=== PATIENT | female | born 1955 | race Caucasian/White ===

== ENCOUNTER 2018-12-18 16:38 | Emergency (ER) | payer OTHER ==
[~2018-12-18] VITALS: Ht 160 cm; Wt 63.5 kg
[~2018-12-18 16:38] MED LIST: AMITRIPTYLINE H10 MG PO; FIORINAL 50-321 EACH PO; LEVOTHYROXINE25 MCG PO; LYRICA50 MG PO; MIRTAZAPINE7.5 MG PO; PROZAC10 MG PO; REQUIP1 MG PO; WELLBUTRIN XL150 MG PO
== END 2018-12-18 16:53 | disposition home or self-care (01) ==
LOC: ED 16:38
DX: R22.0 Localized swelling, mass and lump, head (principal)

== ENCOUNTER 2019-02-02 19:50 | Emergency (ER) | payer OTHER ==
[~2019-02-02] VITALS: Ht 160 cm; Wt 63.5 kg
[~2019-02-02 19:50] MED LIST changes: +SEROQUEL100 MG PO; +ULTRAM50 MG PO
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
[2019-02-02] MEDS ORDERED: AMITRIPTYLINE H10 MG PO (20:22)
[2019-02-02] MEDS ORDERED: PROZAC10 MG PO (20:22)
[2019-02-02] MEDS ORDERED: SYNTHROID25 MCG PO (20:22)
[2019-02-02] MEDS ORDERED: SEROQUEL100 MG PO (20:22)
[2019-02-02] MEDS ORDERED: WELLBUTRIN XL150 MG PO (20:22)
[2019-02-02] MEDS ORDERED: ULTRAM50 MG PO (20:22)
[2019-02-02] MEDS ORDERED: REQUIP0.5 MG PO (20:22)
== END 2019-02-02 20:26 | disposition home or self-care (01) ==
LOC: ED 19:50
DX: Z76.0 Encounter for issue of repeat prescription (principal); F31.9 Bipolar disorder, unspecified; F43.10 Post-traumatic stress disorder, unspecified; E03.9 Hypothyroidism, unspecified; F17.200 Nicotine dependence, unspecified, uncomplicated; Z90.89 Acquired absence of other organs; Z88.5 Allergy status to narcotic agent; Z79.899 Other long term (current) drug therapy
CPT/HCPCS: 99281

== ENCOUNTER 2019-02-13 01:17 | Emergency (ER) | payer OTHER ==
[~2019-02-13] VITALS: Ht 160 cm; Wt 63.5 kg
--- OUTSIDE RECORDS SUMMARY | ~2019-02-13 | XMS | Clinical Summary ---
Demographics + + + | Address | [address] | | | [place] [address] | + + + | Home Phone | | + + + | Preferred Language | Unknown | + + + | Marital Status | Unknown | + + + | Episcopal Affiliation | Unknown | + + + | Race | Unknown | + + + | Ethnic Group | Unknown | + + + Author + + + | Author | [facility] | | | and [facility] | + + + | Organization | [facility] | | | and [facility] | + + + | Address | Unknown | + + + | Phone | Unavailable | + + + Care Team Providers + +------+ + | Care Sales Planning Analyst Name | Role | Phone | + +------+ + PP | Unavailable | + +------+ + Allergies Not on File Current Medications Not on file Active Problems Not on file Social History + +-------+ +--------+------+ | Tobacco [...] on file | | + + + Plan of Treatment + [...] | | | | | (#1) | 8 | | | + + + + + Results Not on filefrom Last 3 Months"
--- OUTSIDE RECORDS SUMMARY | ~2019-02-13 | XMS | Clinical Summary ---
Demographics + + + | Address | [address] | | | [place] [address] | + + + | Home Phone | | + + + | Preferred Language | Unknown | + + + | Marital Status | Unknown | + + + | Hoahaoism Affiliation | Unknown | + + + | Race | Unknown | + + + | Ethnic Group | Unknown | + + + Author + + + | Author | [facility] | | | and [facility] | + + + | Organization | [facility] | | | and [facility] | + + + | Address | Unknown | + + + | Phone | Unavailable | + + + Care Team Providers + +------+ + | Care Business Services Specialist Sales Name | Role | Phone | + [...]
[~2019-02-13 01:17] MED LIST changes: +REQUIP0.5 MG PO; +SYNTHROID25 MCG PO
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
[2019-02-13] MEDS ORDERED: KEFLEX500 MG PO (03:15)
== END 2019-02-13 03:40 | disposition home or self-care (01) ==
LOC: ED 01:17
DX: N39.0 Urinary tract infection, site not specified (principal); F31.9 Bipolar disorder, unspecified; F41.3 Other mixed anxiety disorders; E03.9 Hypothyroidism, unspecified; F17.200 Nicotine dependence, unspecified, uncomplicated; Z88.5 Allergy status to narcotic agent; Z79.899 Other long term (current) drug therapy
CPT/HCPCS: 80053; 80176; 81001; 84443; 85025; 99283; G0480

== ENCOUNTER 2019-09-19 02:21 | Emergency (ER) | payer OTHER ==
[~2019-09-19] VITALS: Ht 160 cm; Wt 70.3 kg
--- OUTSIDE RECORDS SUMMARY | ~2019-09-19 | XMS | Clinical Summary ---
Demographics + + + | Address | [address] [place] [address] | | | [place] [address] | + + + | Home Phone | | + + + | Preferred Language | Unknown | + + + | Marital Status | Unknown | + + + | Advent Affiliation | Unknown | + + + | Race | Unknown | + + + | Ethnic Group | Unknown | + + + Author + + + | Author | [facility] | | | and [place] | + + + | Organization | [facility] | | | and [place] [...] Team Providers + +------+ + | Care Medtronics Technician Name | Role | Phone | + [...] | [employer] | MODA | [id number] | 02/24/20 | [phone] | | Medica | | MEDICAID HMO [...] | Self | [birth year] | [address] | | | al/Fam | | 1955 | [phone] | [place] | | | brett | | | 1 (Home) | [address] | + +--------+ +--------+ + + Advance Directives Patient has advance care planning documents on file. For more information, please contact:[facility] [place] [address]
--- OUTSIDE RECORDS SUMMARY | ~2019-09-19 | XMS | Clinical Summary ---
Demographics + + + | Address | [address] [place] [address] | | | [place] [address] | + + + | Home Phone | | + + + | Preferred Language | Unknown | + + + | Marital Status | Unknown | + + + | Evangelical Affiliation | Unknown | + + + | Race | Unknown | + + + | Ethnic Group | Unknown | + + + Author + + + | Author | [facility] | | | and [place] | + + + | Organization | [facility] | | | and [place] [...] Team Providers + +------+ + | Care Wireless Telegrapher Name | Role | Phone | + [...] | [employer] | MODA | [id number] | 02/24/20 | [phone] | | Medica | | MEDICAID HMO [...] Self | [birth year] | | [address] | | | al/Fam | | 1955 | [phone] | [place] | | | [place] | | | 1 (Home) | [address] | + +--------+ +--------+ + + Advance Directives Patient has advance care planning documents on file. For more information, please contact:[facility] [place] [address]
[~2019-09-19 02:21] MED LIST changes: +KEFLEX500 MG PO
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
== END 2019-09-19 04:46 | disposition home or self-care (01) ==
LOC: ED 02:21
DX: F20.9 Schizophrenia, unspecified (principal); E87.1 Hypo-osmolality and hyponatremia; F31.9 Bipolar disorder, unspecified; E03.9 Hypothyroidism, unspecified; Z88.5 Allergy status to narcotic agent; Z79.899 Other long term (current) drug therapy
CPT/HCPCS: 80053; 80176; 81001; 84443; 85025; 99283; G0480

== ENCOUNTER 2019-09-19 08:00 | Emergency (ER) | payer OTHER ==
[~2019-09-19] VITALS: Ht 160 cm; Wt 70.3 kg
--- OUTSIDE RECORDS SUMMARY | ~2019-09-19 | XMS | Clinical Summary ---
Demographics + + + | Address | [address] [place] [address] | | | [place] [address] | + + + | Home Phone | | + + + | Preferred Language | Unknown | + + + | Marital Status | Unknown | + + + | Anabaptism Affiliation | Unknown | + + + | Race | Unknown | + + + | Ethnic Group | Unknown | + + + Author + + + | Author | [facility] | | | and [place] | + + + | Organization | [facility] | | | and [place] [...] Team Providers + +------+ + | Care Com Writer Name | Role | Phone | + [...] | [employer] | MODA | [id number] | 02/24/20 | [phone] | | Medica | | MEDICAID HMO [...] | Self | [birth year] | [address] | | | al/Fam | | 1955 | [phone] | [place] | | | brett | | | 1 (Home) | [address] | + +--------+ +--------+ + + Advance Directives Patient has advance care planning documents on file. For more information, please contact:[facility] [place] [address]
--- OUTSIDE RECORDS SUMMARY | ~2019-09-19 | XMS | Clinical Summary ---
Demographics + + + | Address | [address] [place] [address] | | | [place] [address] | + + + | Home Phone | | + + + | Preferred Language | Unknown | + + + | Marital Status | Unknown | + + + | Taoist Affiliation | Unknown | + + + | Race | Unknown | + + + | Ethnic Group | Unknown | + + + Author + + + | Author | [facility] | | | and [place] | + + + | Organization | [facility] | | | and [place] [...] Team Providers + +------+ + | Care Forging Operator Name | Role | Phone | [...] | [employer] | MODA | [id number] | 02/24/20 | [phone] | | Medica | | MEDICAID HMO [...] | | al/Fam | | 1955 | [phone] | [place] | | | [place] | | | 1 (Home) | [address] | + +--------+ +--------+ + + Advance Directives Patient has advance care planning documents on file. For more information, please contact:[facility] [place] [address]
--- OUTSIDE RECORDS SUMMARY | 2019-09-19 08:02 | XMS ---
PreManage Notification: ZANDRA LOAIZA Security Starch Treating Assistant Events No recent Security Events currently on file CRITERIA MET - [facility] - Has Care Guidelines - [facility] - 2 Visits in 30 Days CARE PROVIDERS CHRISTINA FLORES Internal Medicine 02/02/2019-Current PHONE: Unknown Nancy has no Care Guidelines for this patient. Care History Medical/Surgical 02/13/2019 [facility] - PATIENT HAS NOT CONTACTED PCP OFFICE. DR SANDRA SANDY HAS TRIED TO CONTACT PATIENT AND LEFT A VOICEMAIL. - PATIENT HAS NOT SEEN PCP SINCE 08/01/2018 AND NEEDS FURTHER FOLLOW UP WITH PCP. 02/02/2019 [facility] - CHW RECEIVED ED CASE MANAGEMENT CONSULT- WITH PATIENT REQUEST TO GO TO [facility]. MS ACCESS DATABASE DEVELOPER WAS INVOLVED WITH PATIENT ALONG WITH [employer]. CHW CONTACTED CHWS OF [facility] AND ADVISED OF REFERRAL. - Patient is currently established with [facility]. If patient is seen in the ED during business hours. Please contact CHWs at [facility]. Care Recommendation: This patient has had 5 [...] care. E.D. VISIT COUNT (12 MO.) 1 [facility] 6 PATIENCE Arreguin TOTAL 7 NOTE: Visits indicate total known visits. 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 - Allergy status to narcotic agent status - Bipolar disorder, unspecified - Nicotine dependence, unspecified, uncomplicated - Other mixed anxiety disorders - Cervicalgia - Urinary tract infection, site not specified 02/02/2019 19:51 PATIENCE [facility] TYPE: Emergency COMPLAINT: - MEDICATION REFILL DIAGNOSES: - Acquired absence of other organs - Allergy status to narcotic agent status - Hypothyroidism, unspecified - Other watermelon harvesting supervisor (current) drug therapy - Post-traumatic stress disorder, [...] part of neck, initial encounter - Other mcc (current) drug therapy 12/18/2018 16:38 [facility] [place] TYPE: Emergency COMPLAINT: - SKIN [id number] DIAGNOSES: - Localized swelling, mass and lump, head INPATIENT VISIT TRACKING (12 MO.) No inpatient visits to display in this time frame [id number]
== END 2019-09-19 08:46 | disposition home or self-care (01) ==
LOC: ED 08:00
DX: R52 Pain, unspecified (principal); E03.9 Hypothyroidism, unspecified; F31.9 Bipolar disorder, unspecified; F17.200 Nicotine dependence, unspecified, uncomplicated; Z88.5 Allergy status to narcotic agent; Z79.899 Other long term (current) drug therapy
CPT/HCPCS: 99283

== ENCOUNTER 2019-09-21 11:24 | Inpatient (IN) | payer OTHER ==
[~2019-09-21] VITALS: Ht 160 cm; Wt 64.9 kg
--- OUTSIDE RECORDS SUMMARY | ~2019-09-21 | XMS | Clinical Summary ---
Demographics + + + | Address | [address] [place] [address] | | | [place] [address] | + + + | Home Phone | | + + + | Preferred Language | Unknown | + + + | Marital Status | Unknown | + + + | Sikh Affiliation | Unknown | + + + | Race | Unknown | + + + | Ethnic Group | Unknown | + + + Author + + + | Author | [facility] | | | and [place] | + + + | Organization | [facility] | | | and [place] | + + + | Address | Unknown | + + + | Phone | Unavailable | + + + Support + + +---------+ + | Name | Relationship | Address | Phone | + + +---------+ + | None,To List | ECON | Unknown | | + + +---------+ + Care Team Providers + +------+ + | Care Drawer Hardware Worker Name | Role | Phone | + +------+ + | Unknown, Doctor | PCP | | + +------+ + Allergies No Known Allergies Medications No known medications Active Problems Not on file Social History + + + +--------+------+ | [...] + +---------+ + | Alcohol Use | Drinks/We | oz/Week | Comments | | | ek | | | + + +---------+ + | Yes | | | | + + +---------+ + + + + | Sex Assigned at | Date Recorded | | | | + + + | Not on file | | + + + + + + + | Job Start Date | Occupation | Industry | + + + + | Not on file | Not on file | Not on file | + + + + + + + + | Travel History | Travel Start | Travel End | + + + + + + | No recent travel history available. | + + Last Filed Vital Signs + + + + | Vital Sign | Reading | Time Taken | + + + + | Blood Pressure | 117/58 | 02/24/2019 1500 PDT | + + + + | Pulse | 109 | 02/24/2019 1500 PDT | + + + + | Temperature | 35.7 C (96.2 F) | 02/23/2019 2256 PDT | + + + + | Respiratory Rate | 18 | 02/24/2019 1500 PDT | + + + + | Oxygen Saturation | 95% | 02/24/2019 1500 PDT | + + + + | Inhaled Oxygen | - | - | | Concentration | | | + + + + | Weight | 63.5 kg (140 lb) | 02/23/20191899 PDT | + + + + | Height | 161.3 cm (5' 3.5") | 02/23/20191899 PDT | + + + + | Body Mass Index | 24.41 | 02/23/2019 1900 PDT | + + + + Plan of Treatment + + + + + | Health Maintenance | Due Date | Last Done | Comments | + + + + + | Vaccine: | | | | | Dtap/Tdap/Td (1 - | 6 | | | | Tdap) | | | | + + + + + | Cervical Cancer | | | | | Screening (Pap) | 7 | | | + + + + + | Vaccine: Zoster (1 | | | | | of 2) | 7 | | | + + + + + | Breast Cancer | | | | | Screening | 2 | | | + + + + + | Vaccine: Influenza | | | | | (#1) | 9 | | | + + + + + Results Not on filefrom Last 3 Months Insurance + +--------+ +--------+ +---------+--------+ | Payer | Benefi | Subscriber | Effect | Phone | Address | Type | | | t Plan | ID | pamela | | | | | | / | | Dates | | | | | | Group | | | | | | + +--------+ +--------+ +---------+--------+ | [employer] | [employer] | [id number] | 02/24/20 | [phone] | | Medica | | MEDICAID HMO | HEALTH | | 19-Pre | 1 | | id | | | MDCD | | sent | | | | | | HMO OR | | | | | | + +--------+ +--------+ +---------+--------+ + +--------+ +--------+ + + | Guarantor Name | Accoun | Relation to | Date | Phone | Billing Address | | | t Type | Patient | of | | | | | | | | | | + +--------+ +--------+ + + | Shirley Macedo | Person | Self | [birth year] | [address] | | | al/Fam | | 1955 | [phone] | [place] | | | brett | | | [address] (Home) | [phone] | + +--------+ +--------+ + + Advance Directives Patient has advance care planning documents on file. For more information, please contact:[facility] [place] [address]
--- OUTSIDE RECORDS SUMMARY | ~2019-09-21 | XMS | Clinical Summary ---
Demographics + + + | Address | [address] [place] [address] | | | [place] [address] | + + + | Home Phone | | + + + | Preferred Language | Unknown | + + + | Marital Status | Unknown | + + + | Jainism Affiliation | Unknown | + + + | Race | Unknown | + + + | Ethnic Group | Unknown | + + + Author + + + | Author | [facility] | | | and [place] | + + + | Organization | [facility] | | | and [place] [...] Team Providers + +------+ + | Care Soaping Machine Back Tender Name | Role | Phone | + [...] | [employer] | [employer] | [id number] | 02/24/20 | [phone] | | Medica | | MEDICAID HMO [...] | Self | [birth year] [address] | | | al/Fam | | 1955 | [phone] | [place] | | | [place] | | | [address] (Home) | [address] | + +--------+ +--------+ + + Advance Directives Patient has advance care planning documents on file. For more information, please contact:[facility] [place] [address]
--- OUTSIDE RECORDS SUMMARY | ~2019-09-21 | XMS | Clinical Summary ---
Demographics + + + | Address | [address] [place] [address] | | | [place] [address] | + + + | Home Phone | | + + + | Preferred Language | Unknown | + + + | Marital Status | Unknown | + + + | Caodaism Affiliation | Unknown | + + + | Race | Unknown | + + + | Ethnic Group | Unknown | + + + Author + + + | Author | [facility] | | | and [place] | + + + | Organization | [facility] | | | and [place] | [...] Team Providers + +------+ + | Care Facility Maintenance Technician Name | Role | Phone | [...] | [employer] | [employer] | [id number] | 02/24/20 | [phone] | | [employer]ica | | MEDICAID HMO [...] | Self | [birth year] | | [address] | | | al/Fam | | 1955 | [phone] | [place] | | | [place] | | | [address] (Home) | [address] | + +--------+ +--------+ + + Advance Directives Patient has advance care planning documents on file. For more information, please contact:[facility] [place] [place] [address]
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
[2019-09-21] MEDS ORDERED: WELLBUTRIN SR100 MG PO (11:48)
[2019-09-21] MEDS ORDERED: FLUOXETINE HCL20 MG PO (11:48)
[2019-09-21] MEDS ORDERED: TIROSINT50 MCG PO (11:49)
[2019-09-21] MEDS ORDERED: DOK100 MG PO (11:49)
[2019-09-21] MEDS ORDERED: ARNUITY ELLIPT50 MCG NAS (11:50)
[2019-09-21] MEDS ORDERED: FLONASE ALLERG9.9 ML NAS (11:51)
--- NOTE | 2019-09-21 17:30 | NUR ---
PT ARRIVED FROM ED VIA STRETCHER. PT ALERT TO SELF AND PLACE. PT ANXIOUS. SITTER IN ROOM WITH PATIENT. BED ALARM IN PLACE.
--- NOTE | 2019-09-21 17:45 | NUR ---
X-RAY TECH IN ROOM WITH PATIENT FOR CHEST X-RAY.
--- NOTE | 2019-09-21 18:17 | NUR ---
PT RESTING IN BED WITH SITTER IN ROOM. BED ALARM IN PLACE.
--- NOTE | 2019-09-21 19:17 | NUR ---
REBEKA MOTT AND THIS ROUTER TENDER HELPED PATIENT USE THE BEDSIDE COMMODE. PATIENT IS BACK BACK IN BED.
--- NOTE | 2019-09-21 19:30 | NUR ---
PATIENT IS IN BED AWAKE AND RESTLESS.
--- NOTE | 2019-09-21 19:54 | NUR ---
PT ALERT BUT CONFUSED. DEMANDING WATER AND A COKE. STATES NEEDS TO VOID, HAS BEEN UP X3 AND VOIDED SCANT AMT URINE. BLADDER SCANNED FOR GREATER THAN 800ML. DR LOMAX NOTIFIED. WILL CONT TO WATCH. PT ALSO C/O BEING HUNGRY. WILL OBTAIN SANDWICH. IS UNSTABLE ON FEET WHEN UP AND DIFFICULT TO DIRECT. IV SL FOR NOW PER DR LOMAX.
--- NOTE | 2019-09-21 19:57 | NUR ---
NURSE AND THIS LITIGATION LEGAL SECRETARY HELPED PATIENT USED THE BEDSIDE COMMODE. PATIENT DID NOT URINATE. PATIENT IS BACK IN BED.
--- NOTE | 2019-09-21 20:07 | NUR ---
PATIENT IS EATING HER SNACK PACK.
--- NOTE | 2019-09-21 21:17 | NUR ---
PATIENT USED THE BEDSIDE COMMODE AND VOIDED. PATIENT IS BACK IN BED.
--- NOTE | 2019-09-21 21:21 | NUR ---
WARM BLANKET PROVIDED PER PATIENT'S REQUEST.
--- NOTE | 2019-09-21 21:30 | NUR ---
DR LOMAX AWARE OF LABS. D5W STARTED. PT QUIETER NOW AND READY FOR SLEEP.
--- NOTE | 2019-09-21 21:42 | NUR ---
PATIENT IS LAYING ON HER RIGHT SIDE CALM, RESTING, EYES CLOSED WITH RR 17 MANUALLY COUNTED IN WHOLE MINUTE.
--- NOTE | 2019-09-21 22:58 | NUR ---
PATIENT IS RESTING LAYING ON HER LEFT SIDE EYES CLOSE RR 14/MINUTE TAKEN VISUALLY.
--- NOTE | 2019-09-22 00:04 | NUR ---
IS SLEEPING, IV D5 CONT TO INFUSE.
--- NOTE | 2019-09-22 01:25 | NUR ---
SLEEPING SOUNDLY. DEXTROSE INFUSION COMPLETED AT 0105.
--- NOTE | 2019-09-22 02:27 | NUR ---
LAB IN TO DRAW BLOOD. SHOOK HEAD "NO" WHEN ASKED IF NEEDED TO URINATE. TURNS SELF IN BED.
--- NOTE | 2019-09-22 03:26 | NUR ---
DR LOMAX NOTIFED OF LABS, ORDER RECIEVED TO GIVEN PT 40MEQ POTASSIUM PO AND TO GIVE 1L OF D5 AT 25OML/HR.
--- NOTE | 2019-09-22 03:51 | NUR ---
PT AWAKENED FOR MEDS. TOOK MEDS WITH MOD ENCOURAGMENT, NO DIFFICULTY SWALLOWING. ENCOURAGED TO VOID, PT DEMANDED TO GO TO BATHROOM. ASSISTED TO BR WHERE PT VOIDED AND PASSED GAS. PT VERY IMPULSIVE IN MOVEMENT AND THEN UNSTEADY. ASKING FOR WATER, GIVEN WATER THEN RETCHED BUT DID NOT THROW UP PILLS.
--- NOTE | 2019-09-22 04:00 | NUR ---
ASSISTED PRIMARY RN START IV.
--- NOTE | 2019-09-22 05:15 | NUR ---
PT VERY AGITATED, WANTING TO WALK. WILL NOT KEEP MONITOR ON. AMB IN WHITE, WILL START TO WALK RAPIDLY THEN BECOMES UNSTEADY. WILL ALSO STRIKE OUT. DR LOMAX CALLED AND ORDER FOR 0.5MG ATIVAN IV NOW AND MAY REPEAT IF PT DOES NOT CALM IN 15-20MIN. PT NOW BACK TO BED WITH SITTER IN ROOM.
--- NOTE | 2019-09-22 06:15 | NUR ---
GIVEN 0.5MG LORAZAPAM AT 0525, IS NOW SLEEPING. PT HAD TAKEN MONITOR LEADS OFF WHILE IN AGITATED STATE. WILL CONT TO LEAVE OFF FOR NOW.
--- NOTE | 2019-09-22 07:30 | NUR ---
report recieved. PATIENT IS ASLEEP IN BED. IVF PATENT. WILL DO ASSESSMENT WHEN WAKES. MONITOR IS OFF AT THIS TIME. RESP EVEN AND NONLABORED.
--- NOTE | 2019-09-22 08:00 | NUR ---
AWAKENED FOR LABS. IS DROWSY. ASSESSMENT DONE. LUBRICATOR GRANULATOR IN ROOM.
--- NOTE | 2019-09-22 08:45 | NUR ---
C/O NAUSEA AFTER TAKING APPROX 40 % OF BREAKFAST.
--- NOTE | 2019-09-22 08:50 | NUR ---
ZOFRAN 4 MG IV GIVEN FOR NAUSEA. ZIGZAG STITCHER HAS BEEN IN ROOM WITH PATIENT. PATIENT CONTINUES TO HAVE ALTERED SENSOROUM. NOT ABLE TO REASON WITH PATIENT AND IS PARANOID.
--- NOTE | 2019-09-22 09:40 | NUR ---
LABS REPORTED TO DR. LOMAX.
--- NOTE | 2019-09-22 10:00 | NUR ---
D5W HUNG PER ORDERS. PATIENT IS CALM AT THIS TIME.
--- NOTE | 2019-09-22 10:05 | NUR ---
Ddavp-2 HUNG PER ORDERS.
--- NOTE | 2019-09-22 10:15 | NUR ---
SLEEPING AT THIS TIME. IVF INFUSING.
--- NOTE | 2019-09-22 11:35 | NUR ---
REMAINS ASLEEP. IVF INFUSING. NO DISTRESS NOTED.
--- NOTE | 2019-09-22 12:24 | NUR ---
REBEKA MOTT REQUESTED THAT PT BE ALLOWED TO SLEEP. WILL CHECK BACK AGAIN
--- NOTE | 2019-09-22 13:15 | NUR ---
AWAKE, DR. LOMAX HERE TO SEE PATIENT. IVF CONTINUE TO INFUSE PER ORDERS. NOT TRACKING AT TIMES. VERY IMPULSIVE. OOB TO CHAIR FOR LUNCH. BAKER BISCUIT IN ROOM.
--- NOTE | 2019-09-22 13:34 | NUR ---
PATIENT BACK TO BED, TRANSFERED STBY AND APPEARED STEADY ON FEET. PROVIDED FRESH ICE WATER AND REMOVED FOOD TRAY FROM ROOM. PATIENT STATED " I AM FEELING BETTER, BUT EVERYTHING FEELS LIKE IT WIPES ME OUT". REASSURED PATIENT, AND ENCOURAGED TO USE IS AND REST.
--- NOTE | 2019-09-22 13:45 | NUR ---
Unable to complete assessment. Pt is confused and "speaking to god". Shushes this RN when I attempt to ask her questions. Staff unable to give information. Pt. was brought to ER possible by [employer]. [facility]
--- NOTE | 2019-09-22 14:36 | NUR ---
[facility] CALL[facility] TO CHECK ON THE PATIENT. [facility] WILL PLAN TO COME SEE HER THIS AFTERNOON AROUND 4PM.
--- NOTE | 2019-09-22 14:55 | NUR ---
SLEEPING NO DISTRESS NOTED.
--- NOTE | 2019-09-22 16:15 | NUR ---
HAS BEEN ASLEEP SINCE ATIVAN GIVEN. [facility] HERE TO SEE PATIENT. PATIENT IS UNABLE TO BE INTERVIEWED AT THIS TIME.
--- NOTE | 2019-09-22 16:30 | NUR ---
PULLED OUT IV CATH.
--- NOTE | 2019-09-22 17:34 | NUR ---
ATIVAN 1 MG IV GIVEN AT 1720 AFTER Tiffany HANNAH RN PLACED IV TO LFA. PATIENT IS ASLEEP AT THIS TIME.
--- NOTE | 2019-09-22 17:56 | NUR ---
AWAKE AND TAKING DINNER. REMAINS PARANOID AND DIFFICULT TO DEAL WITH.
--- NOTE | 2019-09-22 18:15 | NUR ---
BACK TO BED FROM CHAIR. IS UNSTEADY ON FEET.
--- NOTE | 2019-09-22 19:33 | NUR ---
PT AWAKE, IMPULSIVE, WILL DART OUT OF BED. IS SOMEWHAT UNSTEADY ON FEET BUT WILL NOT ALLOW ASSISTANCE. DID GIVE PT COLA TO DRINK AND PT DID TAKE HS PILLS. HAS SOME PARANOIA, STATING AT TIMES STAFF WAS POSSESSED. ALSO ASKING FOR CIGARRETT. DR LOMAX AWARE OF BEHAVIOR.
--- NOTE | 2019-09-22 21:30 | NUR ---
PT SLEPT FOR ABOUT 1 HR. PHARMACY ANCILLARY WAS TRYING TO HELP PT PUT ON A NEW GOWN WHEN PT SUDDENLY WENT TO GET OUT OF BED AND PUT LEFT FOOT BETWEEN BED AND LOWER SIDERAIL THAT HAD BEEN LOWERED FOR HER TO GET OOB. PT THEN FELL,POSS HITTING HEAD AND CATCHING FOOT IN BETWEEN SIDERAIL AND BED. PT WAS LIFTED UP FROM FLOOR AND FOOT EASED OUT. 2 SMALL BRUISED AREAS NOTED ON TOP OF FOOOT. DR LOMAX AWARE AND XRAY ORDERED.
--- NOTE | 2019-09-22 22:48 | NUR ---
PT NOW SLEEPING, WAS GIVEN 1MG ATIVAN AT 2200 FOR RESTLESSNESS. X RAY WAS OBTAINED.
--- NOTE | 2019-09-23 00:07 | NUR ---
SLEEPING, ASSESSMENT DONE WHILE PT SLEPT. DID STIR ENOUGH TO CHANGE HER POSITION.
--- NOTE | 2019-09-23 02:05 | NUR ---
PT CONT TO SLEEP. RESP REG.
--- NOTE | 2019-09-23 04:04 | NUR ---
DR LOMAX CALLED AT 0330 AND GIVEN LABS. ORDER RECEIVED. 3% SALINE STARTED AT 20ML/HR TO RUN FOR 4 HOURS. PT CONT TO SLEEP. WILL CHANGE POSITION ON OWN. WHEN VS TAKEN DID TRY TO BRUSH NURSE AWAY BUT OTHERWISE DID NOT AWAKEN.
--- NOTE | 2019-09-23 06:21 | NUR ---
AWAKE, MENTAL STATUS UNCHANGED. AMB TO BR TO VOID. REMAINS UNSTEADY ON FEET. IS VERY DIFFICULT TO DIRECT AND AT TIMES UNCOOPERATIVE.
--- NOTE | 2019-09-23 06:57 | NUR ---
BACK TO SLEEP.
--- NOTE | 2019-09-23 08:01 | NUR ---
PT REMAINS UNCOPERATIVE WITH HOSPITAL ROUTINE, IS YELLING AT STAFF WANTING US TO STOP ALL TREATMENT. LAB PRESENT AT THIS TIME FOR LAB DRAWEL.
--- NOTE | 2019-09-23 08:30 | NUR ---
PT PULLED IV OUT DESPITE 2 STAFF IN ROOM. NEW IV STARTED IN LEFT FOREARM. PT DECLINING FOOD AT BEDSIDE ATT.
--- NOTE | 2019-09-23 09:00 | NUR ---
PT ALSO PULLED OFF HER NICTOINE PATCH THAT WAS PLACED THIS AM. PATCH LEFT OFF AT THIS TIME. PT REMAINS WITH A 1:1 SITTER TO PROTECT LINES AND TUBES, BUT ALSO TO KEEP PT FROM JUMPING OUT OF BED AND FALLING.
--- NOTE | 2019-09-23 09:33 | NUR ---
LAB CALLED WITH NA RESULTS OF 116. DR LOMAX IN DEPARTMENT AND NOTIFIED OF RESULTS.
--- NOTE | 2019-09-23 09:55 | NUR ---
NEW ORDERS 3% NA TO RUN AT 25MLS/HR OVER 4 HOURS. STARTED AND PT IS COOPERATIVE WITH THIS AT THIS TIME.
--- NOTE | 2019-09-23 10:21 | NUR ---
PT ATE MOST OF HER BREAKFAST. NOW APPEARS TO BE SLEEPING RESTLESTLY WITH OCCASIONAL VERBAL OUTBURSTS.
--- NOTE | 2019-09-23 10:29 | NUR ---
PT REMAINS ON 1:1 AT THIS TIME AND APPEARS TO BE RESTING AT THIS TIME. PT DID EAT HER BKF AFTER ORDERING A SECOND ONE.
--- NOTE | 2019-09-23 11:49 | NUR ---
PT UP TO THE BATHROOM VOIDED AND BACK TO BED, PT DOES NOT WANT STAFF TO TOUCH HER. PT REMAINS UNSTEADY ON HER FEET, CONTIOUE 1:1 TO PROTECTE LINES AND FOR PT SAFTEY. PT WILL JUST LET HERSELF FALL IF SHE DOES NOT WNAT TO DO WHAT YOU ASK OF HER.
--- NOTE | 2019-09-23 12:28 | NUR ---
PT TURNED SELF ABOUT IN HER BED THE 1:1 NURSE IS VERY GOOD AT KEEPING THE IV LINE INPLACE AT THIS TIME. SIDE RAILS X 4 AND BED IN THE LOWEST POSITION. PT JUST YELLS AT STAFF IF SHE WANTS SOMETHING DONE.
--- NOTE | 2019-09-23 12:30 | NUR ---
VS DEFERED AT THIS TIME DUE TO PT BEHAVIORS.
--- NOTE | 2019-09-23 12:36 | NUR ---
LUNCH ORDERED AT THIS TIME, PT YELLING AT 1:1 SITTER. PT IS VERY DEMANING WITH HER REQUEST OF STAFF. PT REMAINS HYPERRELGIOUES, MANIC TENDENSIES.
--- NOTE | 2019-09-23 12:47 | NUR ---
[facility] STAFF PRESENT AT THIS TIME, TALKING WITH PT AND STAFF
--- NOTE | 2019-09-23 13:31 | NUR ---
Called and spoke with Nicki Butcher and Sissy Wyatt from [place]. Received update pt was released from [facility] 3 weeks ago and was homeless and off meds. She was staying at [place], [facility], and then a hotel. Nicki brought her to the ER. She is currently on a Directors Hold and they are awaiting a court, which maybe Saturday or Saturday, for the possible recommitment. They would like pt. to go to an IP program for stabalization of meds. Prior to this happening, she had been accepted at [facility], but they are not sure if there is still a bed available. Someone from will check on this patient today.
--- NOTE | 2019-09-23 14:13 | NUR ---
LAB HERE AT THIS TIME TO OBTAIN LAB SAMPLE. PT MEDICATED WITH 1MG ATAVIN AT THIS TIME FOR LOUD AND DEMANDING OUTBURST. IV FLUIDS STOPED TILL LAB VALUE IS OBTAINED.
--- NOTE | 2019-09-23 14:55 | NUR ---
PT APPEARS TO BE RESTING COMFORTABLE AT THIS TIME. 1:1 SITTER REMAINS IN THE ROOM WITH PT. SIDE RAILS X 4 BED IN LOW POSITION AND ACROSS FROM NURSES STATION.
--- NOTE | 2019-09-23 15:12 | NUR ---
In to visit with pt. She continues with a sitter. Recently medicated and remains restless, waving. Not disturbed at this time.
--- NOTE | 2019-09-23 15:24 | NUR ---
PATIENT UP TO BATHROOM, VOIDED 800 ML OF CLEAR YELLOW URINE. BACK TO BED. DEMANDED BED TO UNPLUGGED. TOLD PATIENT UNABLE TO DO THAT AT THIS TIME. PATIENT UP OUT OF BED, COLLECTED LINENS OFF OF BED AND LAYED ON FLOOR. PATIENT CALM, STATES " I AM MORE COMFORTABLE ON THE FLOOR."
--- NOTE | 2019-09-23 15:33 | NUR ---
PT IS CURRENTLY LYING ON THE FLOOR WITH ALL OF HER BEDDING DUE TO SHE FEELS THAT HER BED IS ELECTRICATING HER. SO THE BED HAS BEEN UNPLUGED, BUT PT WANTS TO WAIT 45 MINUTES SO THAT SHE WILL NOT GET HURT. PT IS TALKING WITH 1:1 SITTER.
--- NOTE | 2019-09-23 16:05 | NUR ---
PT BACK TO BED AT THIS TIME, SHE ALLOWING THE 1:1 TO TAKE VS AT THIS TIME. PT IS MORE COOPERATIVE AT THIS TIME WITH INSPECTOR AND HAND PACKAGER. ORDER HER A SNACK.
--- NOTE | 2019-09-23 17:34 | NUR ---
PT HAS NEW SITTER FOR 1:1 AT THIS TIME, PT IS MORE PLEASENT THIS EVENING, BUT CONTIOUES TO GET UPSET ABOUT FULIDS THAT SHE CAN HAVE. PT WAS GIVEN A REMOTE TO CONTROL THE TV THIS EVENING DUE TO SHE IS MORE COOPERATIVE.
--- NOTE | 2019-09-23 18:22 | NUR ---
PT UP TO THE BATHROOM VOIDED, AND THEN BACK TO BED. SHE WASHED UP IN THE BATHROOM AND THEN PLACED IN PAPER TOP AND BOTTOMS. SHE GAVE MELTER OPERATOR A HUG IN THE PROCESS AND THEN STATES "I GAVE YOU A HUG! I KNOW THAT YOU ARE NOT A HUGGER" THEN LAUGHED AND SMILED AT MELTER OPERATOR. PT IS WANTING TO GO ON A WALK, BUT SHE REMAINS VERY UNSTEADY ON HER FEET AT THIS TIME AND WEAVES AND WAVES WHEN WALKING. AT THIS TIME IT IS NOT SAFE FOR PT TO WALK WITH STAFF. PT BACK TO BED SIDE RAILS X 4 WITH 1:1 SITTER IN THE ROOM. THEY ARE INTERACTING WELL SO FAR THIS SHIFT.
--- NOTE | 2019-09-23 19:10 | NUR ---
D5 IVF'S COMPLETED FOR A TOTAL 1500MLS AT THIS TIME. PT REMAINS ON A 1:1 AT THIS TIME. STONE BELT SANDER IN THE ROOM
--- NOTE | 2019-09-23 19:13 | NUR ---
PT SALINE LOCKED AT THIS TIME.
--- NOTE | 2019-09-23 19:25 | NUR ---
REPORT RECIEVED FROM CCU RN. CARE ASSUMED AT THIS TIME. SECURITY IN DIRECT VISUALIZATION OF PATIENT. ASSISTED PT TO BSC. PT WEAK AND UNSTEADY ON FEET. MOVEMENTS SPORADIC AND IMPULSIVE. PT BACK IN BED. DENIES ANY PAIN OR DISCOMFORT. PROVIDED A WARM BLANKET. NO FURTHER NEEDS AT THIS TIME.
--- NOTE | 2019-09-23 20:15 | NUR ---
PT RESTING WITH EYES CLOSED. REMAINS IN DIRECT LINE OF SUPERVISION OF STAFF.
--- NOTE | 2019-09-23 22:30 | NUR ---
PT UP TO BSC. UNSTEADY ON FEET AND IMPULSIVE. EASILY REDIRECTED. BACK IN BED. IV FLUIDS INFUSING. REMAINS IN DIRECT VISUALIZATION OF STAFF.
--- NOTE | 2019-09-24 | NUR ---
PT RESTING WITH EYES CLOSED. RESPIRATIONS EVEN AND UNLABORED R= 16. REMAINS UNDER DIRECT VISUALIZATION OF STAFF.
--- NOTE | 2019-09-24 02:05 | NUR ---
LAB IN TO DRAW BLOOD ON PATIENT. VS DONE AT THIS TIME. WELL TOLERATED BY PT. REMAINS UNDER DIRECT VISUALIZATION OF STAFF.
--- NOTE | 2019-09-24 03:14 | NUR ---
CALLED DR LOMAX ABOUT SODIUM OF 121. NO NEW ORDERS RECIEVED AT THIS TIME.
--- NOTE | 2019-09-24 05:00 | NUR ---
PT RESTING WITH EYES CLOSED. BREATHING EVEN AND UNLABORED. UNDER DIRECT VISUALIZATION OF STAFF.
--- NOTE | 2019-09-24 06:00 | NUR ---
IN TO ASSESS PATIENT. RESPONDS TO QUESTIONS APPROPRIATELY. RESTING WITH EYES CLOSED. NO NEEDS AT THIS TIME. REMAINS UNDER DIRECT VISUALIZATION OF STAFF.
--- NOTE | 2019-09-24 08:34 | NUR ---
PT GIVEN 1 MG IV ATIVAN FOR ESCILATING BEHAVIORS, SHOUTING AT CARE PROVIDERS, VIOLENT FLAILING WITH ARMS. PT STATES "I NEED A DRINK OF [facility] [place] WATER, I'M DEHYDRATED". PT OFFERED WATER THAT IS AT THE BEDSIDE, PT REFUSED, STATES "NO I WANT A FULL CUP OF WATER".
--- NOTE | 2019-09-24 08:40 | NUR ---
IV SITE IS INTACT, FLUSHES EASILY, PT DENIES PAIN AT SITE.
--- NOTE | 2019-09-24 08:47 | NUR ---
PT REQUESTING BREAKFAST AND ORDERED PER HER REQUEST. NOTIFIED OF FLUID RESTRICTION AND BECAME VERBALLY AGRESSIVE. REBEKA GARCIAS GAVE PT ATIVAN. BECAME NAUSEATED AND PROVIDED WET SWAB TO RINSE MOUTH. ATTEMPTED TO PUT SWAB DOWN HER THROAT BECAUSE "SHE HAS TO GET THAT STUFF UP." STOPPED HER WITH SECURITY ASSISTANCE AND OFFERED ANTIEMETIC BUT SHE REFUSED. NOW RESTING IN BED WITH SECURITY SITTING OUTSIDE ROOM. AWARE OF LOCATION. REFUSED A FURTHER INDEPTH PHYSICAL ASSESSMENT AT THIS TIME.
--- NOTE | 2019-09-24 10:12 | NUR ---
SECURITY SITTING OUTSIDE ROOM 1:1 CARE. APPEARS TO BE SLEEPING AT THIS TIME.
--- NOTE | 2019-09-24 10:47 | NUR ---
PT RESTING IN BED APPEARS TO BE SLEEPING. OCCASSIONALLY RESTLESS. SECURITY CURRENTLY OUTSIDE ROOM WITH 1:1 CARE.
--- NOTE | 2019-09-24 11:25 | NUR ---
VITAL SIGNS TAKEN. PROVIDED BREAKFAST NOW THAT SHE IS AWAKE. STATES "THIS JUICE IS POISON" AND SPLASHED JUICE ALL OVER HER BED. LINENS CHANGED. DR WEBSTER SEE PT AT 1115. WIL IS SITTIG OUTSIDE ROOM 1:1 CARE PROVIDED
--- NOTE | 2019-09-24 12:15 | NUR ---
PT ASSISTED UP TO BATHROOM TO VOID. PT IS ONE PERSON STAND BY ASSIST, TWO PEOPLE IN ROOM FOR SECURITY PURPOSES. GAURD IS OUTSIDE THE ROOM DOOR WITH CURTAIN CLOSED FOR PRIVACY. PT IS ARGUMENTATIVE WITH CARE GIVERS. PT ABLE TO VOID A LARGE AMOUNT OF URINE UNMEASURED. PT THEN BACK TO BED.
--- NOTE | 2019-09-24 13:08 | NUR ---
PT CURRENTLY LAYING IN BED RESTING. OCCASSIONALY RESTLESS. 1:1 CARE WITH SECURITY SITTING OUTSIDE OF THE DOOR.
[2019-09-24] MEDS ORDERED: SEROQUEL100 MG PO (14:22)
[2019-09-24] MEDS ORDERED: BUSPIRONE HCL5 MG PO (14:23)
[2019-09-24] MEDS ORDERED: TYLENOL325 MG PO (14:24)
[2019-09-24] MEDS ORDERED: SALONPAS PATCH1 EAC1 TOP (14:24)
--- NOTE | 2019-09-24 14:24 | NUR ---
PT RESTING IN BED. APPEARS TO BE SLEEPING. 1:1 CARE WITH SECURITY SITTING OUTSIDE ROOM
[2019-09-24] MEDS ORDERED: THERAGRAN-M PR1 EAC1 PO (14:25)
--- NOTE | 2019-09-24 14:26 | NUR ---
MED REC COMPLETE
--- NOTE | 2019-09-24 14:43 | NUR ---
JULIA [employer] TREASURER SITTING AT BEDSIDE TALKING AT THIS TIME. PT CONVERSING APPROPRIATELY
--- NOTE | 2019-09-24 15:10 | NUR ---
PAPER TUBE GRADER HERE TO VISIT PT. PT HAS MULTIPLE REQUESTS "CAN I HAVE ICE" "I NEED THE REMOTE" "HELP ME FIND A CHANNEL TO WATCH". PT CALLS OUT "NURSE" IN A LOUD VOICE WHENEVER SHE HAS A NEED.
--- NOTE | 2019-09-24 15:36 | NUR ---
JULIA CAMPUZANO STILL AT BEDSIDE. PT APPEARS TO BE CONVERSING APPROPRIATELY.
--- NOTE | 2019-09-24 15:43 | NUR ---
PT GIVEN PO TYLENOL INSTEAD OF REQUESTED NAPROXIN SODIUM. PT REPORTS "I'M HURTING IN MY KNEES AND HIPS". PT ABLE TO TAKE PO PILLS EASILY. PT HAS CONTINUED WITH STRANGE BEHAVIORS, DISTRUSTFUL.
--- NOTE | 2019-09-24 16:17 | NUR ---
PT RESTING COMFORTABLY IN BED CONVERSING WITH CAREGIVER. REQUESTING LUNCH AT THIS TIME SINCE SHE WAS SLEEPING DURING LUCNCH. LUNCH WAS ORDERED AND WILL BE PROVIDED TO PT AFTER IT ARRIVES
--- NOTE | 2019-09-24 17:07 | NUR ---
PT HAS NO VERBALIZATION OF PAIN AT THIS TME. TOLERATED VITAL SIGNS WELL
--- NOTE | 2019-09-24 18:01 | NUR ---
PT PEACEFULLY SITTING UP IN BED EATING DINNER AFTER 1MG ATIVAN
--- NOTE | 2019-09-24 18:34 | NUR ---
PT APPEARS TO BE SLEEPING. OCCASIONALLY AROUSING
--- NOTE | 2019-09-24 19:22 | NUR ---
SHIFT REPORT GIVEN TO ONCOMING EXPORT MANAGER NURSE
--- NOTE | 2019-09-24 19:30 | NUR ---
REPORT RC'D FROM DAY SHIFT NURSE DIETER. REPORTS NO ACUTE CHANGES. 1:[address] WITH STAFF AT BEDSIDE. NO ACUTE DISTRESS NOTED. RESPIRATIONS EVEN AND UNLABORED.
--- NOTE | 2019-09-24 20:54 | NUR ---
AAOX3 WITH INAPPROPRIATE RESPONSE TO QUESTIONS. PT AGGITATED AND ANXIOUS AT TIMES BUT SETTLES QUICKLY WITH REASSURANCE. VITAL SIGNS WNL. LUNG CLEAR THROUGHOUT AND ON ROOM AIR. DENIES PAIN. REQUESTING HAIR TO BE BRAIDED, PT TOLERATED WELL AND RELAXED WITH CARES. SBA TO RESTROOM, LARGE AMOUNT OF YELLOW URINE. BACK TO BED. 1:1 WITH STAFF AT BEDSIDE FOR SAFETY. WILL CONTINUE TO MONITOR.
--- NOTE | 2019-09-24 21:24 | NUR ---
PT AGREEABLE TO TAKING MEDS AND TOLERATED WELL. RESTING IN BED AT THIS TIME. 1:[address]
--- NOTE | 2019-09-24 22:05 | NUR ---
PT RESTING IN BED, RESPIRATIONS EVEN AND UNLABORED. 1:1 WITH STAFF AT BEDSIDE FOR SAFETY.
--- NOTE | 2019-09-24 23:35 | NUR ---
PT ATTEMPTING TO GET OUT OF BED AND REQUESTING RESTROOM. 2PA, UNSTEADY ON FEET, AGGITATED AND PULLING AWAY FROM STAFF. BSC, LARGE AMOUNT DILUTE URINE. BACK TO BED. 1:1 STAFF FOR SAFETY IN PLACE.
--- NOTE | 2019-09-24 23:58 | NUR ---
PT RESTLESS AND AGGITATED. UNABLE TO FOLLOW COMMANDS. 1 MG PRN ATIVAN GIVEN. WILL CONTINUE TO MONITOR.
--- NOTE | 2019-09-25 00:11 | NUR ---
PT ATTEMPTING TO GET OF BED, UNABLE TO FOLLOW COMMANDS, AGGITATED. ASSISTED BACK TO BED. 1:1 MONITORING. WILL CONTINUE TO MONITOR.
--- NOTE | 2019-09-25 00:37 | NUR ---
PT REMAINS RESTLESS AND AGGITATED. 1:[address]
--- NOTE | 2019-09-25 00:52 | NUR ---
PT GETTING OUT OF BED, UNABLE TO FOLLOW COMMANDS, AGGITATED, AND RESTLESS. ATTEMPTED TO REASSURE AND REPOSITION. WILL CONTINUE TO MONITOR.
--- NOTE | 2019-09-25 01:04 | NUR ---
PT RESTFUL AT THIS TIME. 1:[address] FOR SAFETY. WILL CONTINUE TO MONITOR.
--- NOTE | 2019-09-25 03:38 | NUR ---
PT RESTING WITH EYES CLOSED. RESPIRATIONS EVEN AND UNLABORED. 1:1 MONITORING REMAINS.
--- NOTE | 2019-09-25 05:30 | NUR ---
NO ACUTE CHANGES TO ASSESSMENT. PT AWAKENS EASILY. DOES NOT FOLLOW COMMANDS. REDIRECT NEEDED FOR AGGITATION. BACK TO BED.
--- NOTE | 2019-09-25 06:31 | NUR ---
PT CONTINUES TO BE IMPULSIVE AND ATTEMPTING TO GET OUT OF BED. DOES NOT FOLLOW COMMANDS. RESTLESSNESS AND AGGITATION CONTINUE. 1:[address] FOR SAFETY.
--- NOTE | 2019-09-25 09:35 | NUR ---
PT TRANSFERED TO ROOM 126 FROM 128. PT REMAINS ASLEEP DURING TRANSFER. ALL PERSONAL BELONGINGS TRANSFERED WELL. PT IS STILL ONE TO ONE CARE.
--- NOTE | 2019-09-25 11:14 | NUR ---
MARYJANE FROM [employer] IS IN PT ROOM TALKING WITH PT AT THIS TIME. PT DIFFICULT SHE CLOSES HER EYES AND REFUSES TO TALK. WHEN INSISTING PT SIT UP, PT QUICKLY REPOSITIONS SELF IN BED STATING "I DON'T WANT THEM TO TOUCH ME".
--- NOTE | 2019-09-25 12:11 | NUR ---
MARYJANE FROM [facility] UPDATED THIS RN, [facility] HAS REFUSED THE PT AT THIS TIME. MARYJANE IS CONTINUING TO TRY AND FIND A FACILITY TO ACCEPT THIS PT. PT IS AWAKE IN THE ROOM ABLE TO EAT LUNCH, COMPLAINS.
--- NOTE | 2019-09-25 15:03 | NUR ---
PT UP AMBUALTED TO THE BATHROOM WITH ONE PERSON ASSIST. ABLE TO VOID. PT TALKS NONSENSICAL THINGS SUCH "THE SALVATION OF LESLIE" "SADI WERNER IS MY BROTHER" "I AM THE HOLY SPIRIT". PT ABLE TO AMBULATE AN COMMUNICATE.
--- NOTE | 2019-09-25 16:45 | NUR ---
Pt. cont. with sitter. Yossi simmons from [employer] attempting to find placement for this patient.
--- NOTE | 2019-09-25 17:43 | NUR ---
PT TALKING WITH DAUGHTER ON THE PHONE.
--- NOTE | 2019-09-25 18:13 | NUR ---
PT MOSTLY OPPOSITIONAL ALL SHIFT. PT REMAINS ONE TO ONE STAFFING FOR SAFETY PURPOSES. PT REFUSING TO ALLOW VITALS TO BE DONE AND ASSESSMENTS. PT WILL TAKE PO PILLS WITH WATER. ABLE TO HELENA 100% OF MEALS. PT AMBULATES TO BATHROOM WITH ONE PERSON ASSIST. SLEEPING OFF AND ON. PT HAS SPOKEN WITH HER DAUGHTER ON THE PHONE FOR APPROXIMATLY [address] FROM [employer] IS WORKING ON PLACEMENT POST-HOSPITAL. PT HAS BEEN MEDICALLY CLEARED FOR D/C, AWAITING PSYCH ARANGEMENTS.
[2019-09-25] MEDS ORDERED: NICOTINE1 EAC1 TD (18:41)
[2019-09-25] MEDS ORDERED: LAMOTRIGINE50 MG PO (18:42)
--- NOTE | 2019-09-25 19:23 | NUR ---
PT UP AMBULATING TO THE BATHROOM WITH ONE PERSON STAND BY ASSIST. VOIDS UNMEASURED AMOUNT PT ABLE TO WASH FACE AND HANDS. THEN BACK TO BED ONCE CLEAN LINENS PLACED.
--- NOTE | 2019-09-25 20:03 | NUR ---
REPORT RECEIVED FORM DIETER STALEY. PT IN BED CURRENTLY WITH SHEEP CLIPPER PROVIDING OBSERVATION.
--- NOTE | 2019-09-25 21:10 | NUR ---
ASSISTED PT UP TO BR TO VOID. PT GIVEN BROWNIE PER REQUEST. REFUSES ASSESSMENT AND VITALS. TRIED TO GIVE MEDS, REFUSED LAMICTAL AND LOVENOX BUT TOOK SEROQUEL AND SODIUM CHLORIDE TABS. SECURITY CONT TO SIT IN VIEW OF PT.
--- NOTE | 2019-09-25 23:17 | NUR ---
PT AWAKE IN BED, TOSSING AND TURNING. SECUITY GUARD OUTSIDE DOOR.
--- NOTE | 2019-09-26 07:36 | NUR ---
PT SLEPT ON AND OFF ALL NIGHT. REFUSED TO HAVE VS TAKEN, DID ALLOW SALINE LOCK TO BE FLUSHED.
--- NOTE | 2019-09-26 08:53 | NUR ---
PATIENT REMAINS ON DIRECTOR'S HOLD THROUGH [employer], BUT IS MEDICALLY CLEARED. PENDING PLACEMENT PER [employer]. DEAN OF STUDENTS IN CONTACT WITH [employer] ABOUT THIS PLACEMENT. PT EAGER TO LEAVE.
--- NOTE | 2019-09-26 10:29 | NUR ---
PATIENT REMAINS IN ROOM AT THIS TIME, SLEEPING ON THE COUCH. SECURITY REMAINS PRESENT TO WATCH OVER PATIENT.
--- NOTE | 2019-09-26 11:29 | NUR ---
[facility] RE[facility]ADER MURPHY HERE, AND STATES THAT SINCE PATIENT IS D/C FROM HOSPITAL MEDICALLY, SHE WILL MOVE HER DOWN TO THE ER WHILE WE CONTINUE TO WAIT FOR BED PLACEMENT FROM [facility] TO BE D/C PRIOR TO PATIENT MOVING.
--- NOTE | 2019-09-26 11:49 | NUR ---
PATIENT TAKEN TO THE BATHROOM PRIOR TO D/C. PATIENT'S IV TAKEN OUT OF LEFT FOREARM. PT GIVEN ALL HER PERSONAL BELONGINGS AND PATIENT ABLE TO SIGN HER DISCHARGE PAPER WORK. PATIENT ESCORTED FROM ROOM 126 VIA WHEELCHAIR WITH SECURITY AND WITH HER COMBINATION WORKER, MURPHY.
== END 2019-09-26 11:38 | disposition home or self-care (01) | DRG 640 ==
LOC: ED 11:24 → CCU 17:01
PROVIDERS: ADMIT Internal Medicine
DX: E87.1 Hypo-osmolality and hyponatremia (principal); G93.41 Metabolic encephalopathy; F31.2 Bipolar disorder, current episode manic severe with psychotic features; R63.1 Polydipsia; F17.210 Nicotine dependence, cigarettes, uncomplicated; F43.10 Post-traumatic stress disorder, unspecified; E03.9 Hypothyroidism, unspecified; G25.81 Restless legs syndrome; M79.7 Fibromyalgia; F12.20 Cannabis dependence, uncomplicated; Z88.5 Allergy status to narcotic agent; Z88.8 Allergy status to other drugs, medicaments and biological substances; Z79.51 Long term (current) use of inhaled steroids; Z79.899 Other long term (current) drug therapy
CPT/HCPCS: 36415; 51798; 71045; 73630; 80048; 80053; 80176; 81001; 83930; 83935; 84300; 84443; 84550; 85025; 99285-25; G0480; J1650; J2060; J2405; J2597; J7070

== ENCOUNTER → 2019-09-26 | Emergency (ER) | payer OTHER ==
[~2019-09-26] VITALS: Ht 160 cm; Wt 64.9 kg
[~2019-09-26] MED LIST changes: +ARNUITY ELLIPT50 MCG NAS; +BUSPIRONE HCL5 MG PO; +DOK100 MG PO; +FLONASE ALLERG9.9 ML NAS; +FLUOXETINE HCL20 MG PO; +LAMOTRIGINE50 MG PO; +NICOTINE1 EAC1 TD; +SALONPAS PATCH1 EAC1 TOP; +THERAGRAN-M PR1 EAC1 PO; +TIROSINT50 MCG PO; +TYLENOL325 MG PO; +WELLBUTRIN SR100 MG PO
--- OUTSIDE RECORDS SUMMARY | ~2019-09-26 | XMS | Clinical Summary ---
Demographics + + + | Address | [address] | | | [place] [address] | + + + | Home Phone | | + + + | Preferred Language | Unknown | + + + | Marital Status | Unknown | + + + | Oriental Orthodox Affiliation | Unknown | + + + | Race | Unknown | + + + | Ethnic Group | Unknown | + + + Author + + + | Author | [facility] | | | and [place] | + + + | Organization | [facility] | | | and [place] [...] Team Providers + +------+ + | Care Painter And Body Mechanic Apprentice Name | Role | Phone | + [...] | [employer] | [employer] | [id number] | 02/24/20 | [phone] | | Medica | | MEDICAID HMO [...] | Self | [birth year] | [address] | | | al/Fam | | 1955 | [phone] | [place] | | | brett | | | 1 (Home) | [address] | + +--------+ +--------+ + + Advance Directives Patient has advance care planning documents on file. For more information, please contact:[facility] [place] [address]
--- OUTSIDE RECORDS SUMMARY | ~2019-09-26 | XMS | Clinical Summary ---
Demographics + + + | Address | [address] | | | [place] [address] | + + + | Home Phone | | + + + | Preferred Language | Unknown | + + + | Marital Status | Unknown | + + + | Denominational Affiliation | Unknown | + + + | Race | Unknown | + + + | Ethnic Group | Unknown | + + + Author + + + | Author | [facility] | | | and [place] | + + + | Organization | [facility] | | | and [...] Team Providers + +------+ + | Care Coal Pulverizing Operator Name | Role | Phone | + [...] | [employer] | [employer] | [id number] | 02/24/20 | [phone] | | Medica | | MEDICAID HMO [...] | Self | [birth year] | [address] | | | al/Fam | | 1955 | [phone] | [place] | | | brett | | | 1 (Home) | [phone] | + +--------+ +--------+ + + Advance Directives Patient has advance care planning documents on file. For more information, please contact:[facility] [place] [address]
--- OUTSIDE RECORDS SUMMARY | 2019-09-26 11:48 | XMS ---
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 Care History Medical/Surgical 02/13/2019 [facility] - PATIENT HAS NOT CONTACTED PCP OFFICE. DR SANDRA SANDY HAS TRIED TO CONTACT PATIENT AND LEFT A VOICEMAIL. - PATIENT HAS NOT SEEN PCP SINCE 08/01/2018 AND NEEDS FURTHER FOLLOW UP WITH PCP. 02/02/2019 [facility] - CHW RECEIVED ED CASE MANAGEMENT CONSULT- WITH PATIENT REQUEST TO GO TO [facility]. MAKE UP MAN WAS INVOLVED WITH PATIENT [facility] WITH [facility]W CONTACTED [facility] OF [facility] AND ADVISED OF REFERRAL. - Patient is currently established with [facility]. If patient is seen in the ED during business hours. Please contact CHWs at [facility]. Care Recommendation: This patient has had [...] COUNT (12 MO.) 1 Kavita Salgado M.C. 8 PATIENCE Arreguin TOTAL 9 NOTE: Visits indicate total known visits. ED/UCC VISIT TRACKING (12 MO.) 09/26/2019 11:47 PATIENCE Carrasco [place] TYPE: Emergency COMPLAINT: - MEDICAL CLEARANCE 09/21/2019 11:24 PATIENCE [place] [facility] [place] TYPE: Emergency COMPLAINT: - MEDICAL CLEARANCE 09/19/2019 08:00 PATIENCE [facility]ica Gross [place] TYPE: Emergency COMPLAINT: - BACK/SHOULDER PAIN NON INJURY DIAGNOSES: - Other salvage determiner (current) drug therapy - Nicotine dependence, unspecified, uncomplicated - Allergy status to narcotic agent status - Hypothyroidism, unspecified - Bipolar disorder, unspecified - Pain, unspecified 09/19/2019 02:22 PATIENCE Carrasco [place] TYPE: Emergency COMPLAINT: - MED CLEARANCE DIAGNOSES: - Hypo-osmolality and hyponatremia - Encounter for other general examination - Other prison (current) drug therapy - Bipolar disorder, unspecified - Allergy status to narcotic agent status - Hypothyroidism, unspecified - Schizophrenia, unspecified 02/23/2019 18:34 [facility] R[facility] TYPE: Emergency DIAGNOSES: - Delusional - Brief psychotic disorder - Hypokalemia 02/13/2019 01:18 PATIENCE Carrasco [place] TYPE: Emergency COMPLAINT: - PAIN DIAGNOSES: - Hypothyroidism, unspecified - Other salvage determiner (current) drug therapy - Allergy status to narcotic agent status - Bipolar disorder, unspecified - Nicotine dependence, unspecified, uncomplicated - Other mixed anxiety disorders - Cervicalgia - Urinary tract infection, site not specified 02/02/2019 19:51 PATIENCE Carrasco [place] TYPE: Emergency COMPLAINT: - MEDICATION REFILL DIAGNOSES: - Acquired absence of other organs - Allergy status to narcotic agent status - Hypothyroidism, unspecified - Other prison (current) drug therapy - Post-traumatic stress disorder, [...] part of neck, initial encounter - Other salvage determiner (current) drug therapy 12/18/2018 16:38 PATIENCE Carrasco [place] TYPE: Emergency COMPLAINT: - SKIN [id number] DIAGNOSES: - Localized swelling, mass and lump, head INPATIENT VISIT TRACKING (12 MO.) 09/21/2019 17:01 PATIENCE Carrasco [place] TYPE: Critical Care COMPLAINT: - HYPONATREMIA [id number]
== END ==
LOC: ED 11:45
DX: F32.9 Major depressive disorder, single episode, unspecified (principal); E03.9 Hypothyroidism, unspecified; F43.10 Post-traumatic stress disorder, unspecified; Z88.5 Allergy status to narcotic agent; Z88.8 Allergy status to other drugs, medicaments and biological substances; Z79.899 Other long term (current) drug therapy
CPT/HCPCS: 80053; 85025; 99285

== ENCOUNTER 2020-06-24 14:53 | Emergency (ER) | payer OTHER ==
[~2020-06-24] VITALS: Ht 160 cm; Wt 68.0 kg
--- OUTSIDE RECORDS SUMMARY | ~2020-06-24 | XMS | Encounter Summary ---
Demographics + + + | Address | [address] | | | [place] [address] | + + + | Home Phone | | + + + | Preferred Language | Unknown | + + + | Marital Status | Unknown | + + + | Evangelical Affiliation | Unknown | + + + | Race | Unknown | + + + | Ethnic Group | Unknown | + + + Author + + + | Author | [facility] | | | and [place] | + + + | Organization | [facility] | | | and [place] | + + + | Address | Unknown | + + + | Phone | Unavailable | + + + Support + + +---------+ + | Name | Relationship | Address | Phone | + + +---------+ + | To List None | ECON | Unknown | | + + +---------+ + Care Team Providers + +------+ + | Care Germination Testing Manager Name | Role | Phone | + +------+ + PCP | Unavailable | + +------+ + Encounter Details +--------+ + + + + | Date | Type | Department | Care Team | Description | +--------+ + + + + | 06/05/ | Hospital | [facility] | Moises Monge | | | 2006 | Encounter | MED CTR SLEEP | MD Zoh[address] | | | | | [address] | [place] | | | | | [place] | [place] [address] | | | | | [id number] | [phone] | | | | | [phone] | | | +--------+ + + + + Social History + +-------+ +--------+------+ | Tobacco Use | Types | Packs/Day | Years | Date | | | | | Used | | + +-------+ +--------+------+ | Never Assessed | | | | | + +-------+ +--------+------+ + + + | Sex Assigned at | Date Recorded | | | | + + + | Not on file | | + + + documented as of this encounter Plan of Treatment Not on filedocumented as of this encounter Visit Diagnoses Not on filedocumented in this encounter"
--- OUTSIDE RECORDS SUMMARY | ~2020-06-24 | XMS | Encounter Summary ---
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 [email or web address] | | | m | +---+--------+ documented in this encounter Results Potassium (02/24/2019 8:51 AM PDT) + +---------+ + + + | Component | Value | Ref Range | Performed | Pathologist | | | | | At | Signature | + +---------+ + + + | K | 3.2 (L) | 3.4 - 5.1 | [facility] | | | | | mmol/L | [facility] | | | | | | [facility] | | | | | | CENTER - | | | | | | LABORATORY | | + +---------+ + + + + + | Specimen | + + | Blood | + + + + + + + | Performing | Address | City/State/Zipcode | Phone Number | | Organization | | | | + + + + + | [facility] | [address] | [place] | [phone] | | [facility] | | [address] | | | - LABORATORY | | | | + + + + + Drugs of Abuse, Screen, Urine (02/23/2019 8:49 PM PDT) + + + + + + | Component | Value | Ref Range | Performed | Pathologist | | | | | At | Signature | + + + + + + | Amphetamine | Negative | Negative | [facility] | | | Screen, | | | [facility] | | | Urine | | | MEDICAL | | | | | | CENTER - | | | | | | LABORATORY | | + + + + + + | Barbiturate | Negative | Negative | [facility] | | | s Screen, | | | [facility] | | | Urine | | | MEDICAL | | | | | | CENTER - | | | | | | LABORATORY | | + + + + + + | Benzodiazep | Negative | Negative | [facility] | | | greg | | | [facility] | | | Screen, | | | MEDICAL | | | Urine | | | CENTER - | | | | | | LABORATORY | | + + + + + + | Cannabinoid | Positive (A) | Negative | [facility] | | | s Screen, | | | [facility] | | | Urine | | | MEDICAL | | | | | | CENTER - | | | | | | LABORATORY | | + + + + + + | Cocaine | Negative | Negative | [facility] | | | Screen, | | | [facility] | | | Urine | | | MEDICAL | | | | | | CENTER - | | | | | | LABORATORY | | + + + + + + | Methadone | Negative | Negative | [facility] | | | Screen, | | | [facility] | | | Urine | | | MEDICAL | | | | | | CENTER - | | | | | | LABORATORY | | + + + + + + | Opiates | Negative | Negative | [facility] | | | Screen, | | | [facility] | | | Urine | | | MEDICAL | | | | | | CENTER - | | | | | | LABORATORY | | + + + + + + + + | Specimen | + + | Urine | + + + + + + + | Performing | Address | City/State/Zipcode | Phone Number | | Organization | | | | + + + + + | [facility] | [address] | [place] | [phone] | | [facility] | | [address] | | | - LABORATORY | | | | + + + + + Urinalysis With Microscopic (02/23/2019 8:49 PM PDT) + + + + + + | Component | Value | Ref Range | Performed | Pathologist | | | | | At | Signature | + + + + + + | Color, | Yellow | Light Yellow, | [facility] | | | Urine | | Yellow, Straw | [facility] | | | | | | MEDICAL | | | | | | CENTER - | | | | | | LABORATORY | | + + + + + + | Clarity, | Clear | Clear | [facility] | | | Urine | | | [facility] | | | | | | MEDICAL | | | | | | CENTER - | | | | | | LABORATORY | | + + + + + + | pH, Urine | 6.0 | 5.0 - 8.0 | [facility] | | | | | | [facility] | | | | | | MEDICAL | | | | | | CENTER - | | | | | | LABORATORY | | + + + + + + | Specific | 1.005 | 1.001 - 1.030 | [facility] | | | [place], | | | [facility] | | | Urine | | | MEDICAL | | | | | | CENTER - | | | | | | LABORATORY | | + + + + + + | Protein, | Negative | Negative | [facility] | | | Urine | | | [facility] | | | | | | MEDICAL | | | | | | CENTER - | | | | | | LABORATORY | | + + + + + + | Blood, | Small (A) | Negative | [facility] | | | Urine | | | [facility] | | | | | | MEDICAL | | | | | | CENTER - | | | | | | LABORATORY | | + + + + + + | Glucose, | Negative | Negative | [facility] | | | Urine | | | [facility] | | | | | | MEDICAL | | | | | | CENTER - | | | | | | LABORATORY | | + + + + + + | Ketones, | Negative | Negative | [facility] | | | Urine | | | [facility] | | | | | | MEDICAL | | | | | | CENTER - | | | | | | LABORATORY | | + + + + + + | Bilirubin, | Negative | Negative | [facility] | | | Urine | | | [facility] | | | | | | MEDICAL | | | | | | CENTER - | | | | | | LABORATORY | | + + + + + + | Nitrite, | Negative | Negative | [facility] | | | Urine | | | [facility] | | | | | | MEDICAL | | | | | | CENTER - | | | | | | LABORATORY | | + + + + + + | Leukocyte | Negative | Negative | [facility] | | | Esterase, | | | [facility] | | | Urine | | | MEDICAL | | | | | | CENTER - | | | | | | LABORATORY | | + + + + + + | Urobilinoge | Negative | 0.2 mg/dL, 1.0 | [facility] | | | n, Urine | | mg/dL, Negative | [facility] | | | | | | MEDICAL | | | | | | CENTER - | | | | | | LABORATORY | | + + + + + + | White Blood | 0-2 | 0 - 2 /HPF | [facility] | | | Cells, | | | [facility] | | | Urine | | | MEDICAL | | | | | | CENTER - | | | | | | LABORATORY | | + + + + + + | Red Blood | 2-5 (A) | 0 - 2 /HPF | [facility] | | | Cells, | | | [facility] | | | Urine | | | MEDICAL | | | | | | CENTER - | | | | | | LABORATORY | | + + + + + + | Squamous | 2-5 (A) | 0 - 2 /LPF | [facility] | | | Epithelial | | | [facility] | | | Cells, | | | MEDICAL | | | Urine | | | CENTER - | | | | | | LABORATORY | | + + + + + + | Bacteria, | Negative | Negative /HPF | [facility] | | | Urine | | | [facility] | | | | | | MEDICAL | | | | | | CENTER - | | | | | | LABORATORY | | + + + + + + | Mucus, | Present (A) | Negative /LPF | [facility] | | | Urine | | | [facility] | | | | | | MEDICAL | | | | | | CENTER - | | | | | | LABORATORY | | + + + + + + + + | Specimen | + + | Urine | + + + + + + + | Performing | Address | City/State/Zipcode | Phone Number | | Organization | | | | + + + + + | [facility] | [address] | [place] | [phone] | | [facility] | | [address] | | | - LABORATORY | | | | + + + + + Magnesium (02/23/2019 7:35 PM PDT) + +-------+ + + + | Component | Value | Ref Range | Performed | Pathologist | | | | | At | Signature | + +-------+ + + + | Magnesium | 2.0 | 1.6 - 2.6 mg/dL | [facility] | | | | | | [facility] | | | | | | MEDICAL | | | | | | CENTER - | | | | | | LABORATORY | | + +-------+ + + + + + | Specimen | + + | Blood | + + + + + + + | Performing | Address | City/State/Zipcode | Phone Number | | Organization | | | | + + + + + | [facility] | [address] | [place], [place] | [phone] | | [facility] | | [address] | | | - LABORATORY | | | | + + + + + Extra Bravo Top Tube (02/23/2019 7:35 PM PDT) + +-------+ + + + | Component | Value | Ref Range | Performed | Pathologist | | | | | At | Signature | + +-------+ + + + | Extra Bravo | Done | | [facility] | | | Top Tube | | | [facility] | | | | | | MEDICAL | | | | | | CENTER - | | | | | | LABORATORY | | + +-------+ + + + + + | Specimen | + + | Blood | + + + + + + + | Performing | Address | City/State/Zipcode | Phone Number | | Organization | | | | + + + + + | [facility] | [address] | [place] | [phone] | | [facility] | | [address] | | | - LABORATORY | | | | + + + + + Extra Gold Top Tube (02/23/2019 7:35 PM PDT) + +-------+ + + + | Component | Value | Ref Range | Performed | Pathologist | | | | | At | Signature | + +-------+ + + + | Extra Gold | Done | | [facility] | | | Top Tube | | | [facility] | | | | | | MEDICAL | | | | | | CENTER - | | | | | | LABORATORY | | + +-------+ + + + + + | Specimen | + + | Blood | + + + + + + + | Performing | Address | City/State/Zipcode | Phone Number | | Organization | | | | + + + + + | [facility] | [address] | [place] | [phone] | | [facility] | | [address] | | | - LABORATORY | | | | + + + + + Extra Blue Top Tube (02/23/2019 7:35 PM PDT) + +-------+ + + + | Component | Value | Ref Range | Performed | Pathologist | | | | | At | Signature | + +-------+ + + + | Extra Blue | Done | | [facility] | | | Top Tube | | | [facility] | | | | | | MEDICAL | | | | | | CENTER - | | | | | | LABORATORY | | + +-------+ + + + + + | Specimen | + + | Blood | + + + + + + + | Performing | Address | City/State/Zipcode | Phone Number | | Organization | | | | + + + + + | [facility] | [address] | [place] | [phone] | | [facility] | | [address] | | | - LABORATORY | | | | + + + + + Acetaminophen Level (02/23/2019 7:35 PM PDT) + +-------+ + + + | Component | Value | Ref Range | Performed | Pathologist | | | | | At | Signature | + +-------+ + + + | Acetaminoph | <2 | <=2 ug/mL | [facility] | | | en Level | | | [facility] | | | | | | MEDICAL | | | | | | CENTER - | | | | | | LABORATORY | | + +-------+ + + + + + | Specimen | + + | Blood | + + + + + + + | Performing | Address | City/State/Zipcode | Phone Number | | Organization | | | | + + + + + | [facility] | [address] | [place] | [phone] | | [facility] | | [address] | | | - LABORATORY | | | | + + + + + Salicylate Level (02/23/2019 7:35 PM PDT) + +-------+ + + + | Component | Value | Ref Range | Performed | Pathologist | | | | | At | Signature | + +-------+ + + + | Salicylate | <3.0 | <30.1 mg/dL | [facility] | | | Level | | | [facility] | | | | | | MEDICAL | | | | | | CENTER - | | | | | | LABORATORY | | + +-------+ + + + + + | Specimen | + + | Blood | + + + + + + + | Performing | Address | City/State/Zipcode | Phone Number | | Organization | | | | + + + + + | [facility] | [address] | [place] | [phone] | | [facility] | | [address] | | | - LABORATORY | | | | + + + + + TSH (02/23/2019 7:35 PM PDT) + +-------+ + + + | Component | Value | Ref Range | Performed | Pathologist | | | | | At | Signature | + +-------+ + + + | TSH | 2.50 | 0.55 - 4.78 | [facility] | | | | | uIU/mL | [facility] | | | | | | MEDICAL | | | | | | CENTER - | | | | | | LABORATORY | | + +-------+ + + + + + | Specimen | + + | Blood | + + + + + + + | Performing | Address | City/State/Zipcode | Phone Number | | Organization | | | | + + + + + | [facility] | [address] | [place] | [phone] | | [facility] | | [address] | | | - LABORATORY | | | | + + + + + Ethanol (02/23/2019 7:35 PM PDT) + +-------+ + + + | Component | Value | Ref Range | Performed | Pathologist | | | | | At | Signature | + +-------+ + + + | ALCOHOL, | 7 (H) | <=6 mg/dL | [facility] | | | SERUM/PLASM | | | [facility] | | | A | | | MEDICAL | | | | | | CENTER - | | | | | | LABORATORY | | + +-------+ + + + + + | Specimen | + + | Blood | + + + + + + + | Performing | Address | City/State/Zipcode | Phone Number | | Organization | | | | + + + + + | [facility] | [address] | [place] | [phone] | | [facility] | | [address] | | | - LABORATORY | | | | + + + + + Comprehensive Metabolic Panel (02/23/2019 7:35 PM PDT) + +---------+ + + + | Component | Value | Ref Range | Performed | Pathologist | | | | | At | Signature | + +---------+ + + + | Na | 141 | 136 - 145 | [facility] | | | | | mmol/L | [facility] | | | | | | MEDICAL | | | | | | CENTER - | | | | | | LABORATORY | | + +---------+ + + + | K | 2.9 (L) | 3.4 - 5.1 | [facility] | | | | | mmol/L | [facility] | | | | | | MEDICAL | | | | | | CENTER - | | | | | | LABORATORY | | + +---------+ + + + | Cl | 106 | 98 - 107 mmol/L | [facility] | | | | | | [facility] | | | | | | MEDICAL | | | | | | CENTER - | | | | | | LABORATORY | | + +---------+ + + + | CO2 | 27 | 20 - 31 mmol/L | [facility] | | | | | | [facility] | | | | | | MEDICAL | | | | | | CENTER - | | | | | | LABORATORY | | + +---------+ + + + | Anion Gap | 8 | 3 - 16 mmol/L | [facility] | | | | | | [facility] | | | | | | MEDICAL | | | | | | CENTER - | | | | | | LABORATORY | | + +---------+ + + + | Glucose | 85 | 60 - 106 mg/dL | [facility] | | | | | | [facility] | | | | | | MEDICAL | | | | | | CENTER - | | | | | | LABORATORY | | + +---------+ + + + | BUN | 6 (L) | 9 - 23 mg/dL | [facility] | | | | | | [facility] | | | | | | MEDICAL | | | | | | CENTER - | | | | | | LABORATORY | | + +---------+ + + + | Creatinine | 0.76 | 0.55 - 1.02 | [facility] | | | | | mg/dL | [facility] | | | | | | MEDICAL | | | | | | CENTER - | | | | | | LABORATORY | | + +---------+ + + + | eGFR, | >60 | >=60 | [facility] | | | non- | | mL/min/1.73m2 | [facility] | | | [place] | | | MEDICAL | | | | | | CENTER - | | | | | | LABORATORY | | + +---------+ + + + | Calcium | 9.2 | 8.7 - 10.4 | [facility] | | | | | mg/dL | [facility] | | | | | | MEDICAL | | | | | | CENTER - | | | | | | LABORATORY | | + +---------+ + + + | Albumin | 3.9 | 3.2 - 4.8 g/dL | [facility] | | | | | | [facility] | | | | | | MEDICAL | | | | | | CENTER - | | | | | | LABORATORY | | + +---------+ + + + | Bilirubin | 1.0 | 0.3 - 1.2 mg/dL | [facility] | | | Total | | | [facility] | | | | | | MEDICAL | | | | | | CENTER - | | | | | | LABORATORY | | + +---------+ + + + | Total | 6.6 | 5.7 - 8.2 g/dL | [facility] | | | Protein | | | [facility] | | | | | | MEDICAL | | | | | | CENTER - | | | | | | LABORATORY | | + +---------+ + + + | AST | 40 (H) | 0 - 34 U/L | [facility] | | | | | | [facility] | | | | | | MEDICAL | | | | | | CENTER - | | | | | | LABORATORY | | + +---------+ + + + | ALT | 28 | 10 - 49 U/L | [facility] | | | | | | [facility] | | | | | | MEDICAL | | | | | | CENTER - | | | | | | LABORATORY | | + +---------+ + + + | Alkaline | 92 | 46 - 116 U/L | [facility] | | | Phosphatase | | | [facility] | | | | | | MEDICAL | | | | | | CENTER - | | | | | | LABORATORY | | + +---------+ + + + | Globulin | 2.7 | 2.1 - 3.8 g/dL | [facility] | | | | | | [facility] | | | | | | MEDICAL | | | | | | CENTER - | | | | | | LABORATORY | | + +---------+ + + + | Albumin/Heidy | 1.4 | 0.8 - 1.9 | [facility] | | | bulin Ratio | | | [facility] | | | | | | MEDICAL | | | | | | CENTER - | | | | | | LABORATORY | | + +---------+ + + + | BUN/Creatin | 7.9 | | [facility] | | | ine Ratio | | | [facility] | | | | | | MEDICAL | | | | | | CENTER - | | | | | | LABORATORY | | + +---------+ + + + + + | Specimen | + + | Blood | + + + + + + + | Performing | Address | City/State/Zipcode | Phone Number | | Organization | | | | + + + + + | [facility] | [address] | [place] | [phone] | | [facility] | | [address] | | | - LABORATORY | | | | + + + + + CBC with Differential (02/23/2019 7:35 PM PDT) + + + + + + | Component | Value | Ref Range | Performed | Pathologist | | | | | At | Signature | + + + + + + | White Blood | 9.4 | 4.0 - 11.0 K/uL | [facility] | | | Cells | | | [facility] | | | | | | MEDICAL | | | | | | CENTER - | | | | | | LABORATORY | | + + + + + + | Red Blood | 4.08 | 3.70 - 5.20 | [facility] | | | Cells | | M/uL | [facility] | | | | | | MEDICAL | | | | | | CENTER - | | | | | | LABORATORY | | + + + + + + | Hemoglobin | 11.3 (L) | 11.5 - 16.0 | [facility] | | | | | g/dL | [facility] | | | | | | MEDICAL | | | | | | CENTER - | | | | | | LABORATORY | | + + + + + + | Hematocrit | 34.7 | 34.0 - 47.0 % | [facility] | | | | | | [facility] | | | | | | MEDICAL | | | | | | CENTER - | | | | | | LABORATORY | | + + + + + + | MCV | 85.0 | 83.0 - 101.0 fL | [facility] | | | | | | [facility] | | | | | | MEDICAL | | | | | | CENTER - | | | | | | LABORATORY | | + + + + + + | MCH | 27.7 (L) | 28.0 - 35.0 pg | [facility] | | | | | | [facility] | | | | | | MEDICAL | | | | | | CENTER - | | | | | | LABORATORY | | + + + + + + | MCHC | 32.6 | 32.0 - 36.0 | [facility] | | | | | g/dL | [facility] | | | | | | MEDICAL | | | | | | CENTER - | | | | | | LABORATORY | | + + + + + + | RDW-CV | 13.5 | <15.0 % | [facility] | | | | | | [facility] | | | | | | MEDICAL | | | | | | CENTER - | | | | | | LABORATORY | | + + + + + + | RDW-SD | 41.7 | 35.1 - 46.3 fL | [facility] | | | | | | [facility] | | | | | | MEDICAL | | | | | | CENTER - | | | | | | LABORATORY | | + + + + + + | Platelet | 432 | 140 - 440 K/uL | [facility] | | | Count | | | [facility] | | | | | | MEDICAL | | | | | | CENTER - | | | | | | LABORATORY | | + + + + + + | MPV | 9.0 | 6.5 - 12.4 fL | [facility] | | | | | | [facility] | | | | | | MEDICAL | | | | | | CENTER - | | | | | | LABORATORY | | + + + + + + | % | 67.7 | 45.0 - 82.0 % | [facility] | | | Neutrophils | | | [facility] | | | | | | MEDICAL | | | | | | CENTER - | | | | | | LABORATORY | | + + + + + + | % | 21.2 | 20.0 - 45.0 % | [facility] | | | Lymphocytes | | | [facility] | | | | | | MEDICAL | | | | | | CENTER - | | | | | | LABORATORY | | + + + + + + | % Monocytes | 9.4 | 4.0 - 12.0 % | [facility] | | | | | | [facility] | | | | | | MEDICAL | | | | | | CENTER - | | | | | | LABORATORY | | + + + + + + | % | 1.0 | 0.0 - 5.0 % | [facility] | | | Eosinophils | | | [facility] | | | | | | MEDICAL | | | | | | CENTER - | | | | | | LABORATORY | | + + + + + + | % Basophils | 0.5 | 0.0 - 1.0 % | [facility] | | | | | | [facility] | | | | | | MEDICAL | | | | | | CENTER - | | | | | | LABORATORY | | + + + + + + | % Immature | 0.2 | 0.0 - 0.4 % | [facility] | | | Granulocyte | | | [facility] | | | s | | | MEDICAL | | | | | | CENTER - | | | | | | LABORATORY | | + + + + + + | Absolute | 6.36 | 1.80 - 8.50 | [facility] | | | Neutrophils | | K/uL | [facility] | | | | | | MEDICAL | | | | | | CENTER - | | | | | | LABORATORY | | + + + + + + | Absolute | 1.99 | 0.60 - 3.20 | [facility] | | | Lymphocytes | | K/uL | [facility] | | | | | | MEDICAL | | | | | | CENTER - | | | | | | LABORATORY | | + + + + + + | Absolute | 0.88 | 0.00 - 1.00 | [facility] | | | Monocytes | | K/uL | [facility] | | | | | | MEDICAL | | | | | | CENTER - | | | | | | LABORATORY | | + + + + + + | Absolute | 0.09 | 0.00 - 0.40 | [facility] | | | Eosinophils | | K/uL | [facility] | | | | | | MEDICAL | | | | | | CENTER - | | | | | | LABORATORY | | + + + + + + | Absolute | 0.05 | 0.00 - 0.10 | [facility] | | | Basophils | | K/uL | [facility] | | | | | | MEDICAL | | | | | | CENTER - | | | | | | LABORATORY | | + + + + + + | Absolute | 0.02 | 0.00 - 0.03 | [facility] | | | Immature | | K/uL | [facility] | | | Granulocyte | | | MEDICAL | | | s | | | CENTER - | | | | | | LABORATORY | | + + + + + + | % nRBC | 0 | 0 - 2 per 100 | [facility] | | | | | WBC's | [facility] | | | | | | MEDICAL | | | | | | CENTER - | | | | | | LABORATORY | | + + + + + + | Absolute | 0.00 | 0.00 - 0.01 | [facility] | | | nRBC | | K/uL | [facility] | | | | | | MEDICAL | | | | | | CENTER - | | | | | | LABORATORY | | + + + + + + + + | Specimen | + + | Blood | + + + + + + + | Performing | Address | City/State/Zipcode | Phone Number | | Organization | | | | + + + + + | [facility] | 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 | + + | Hypokalemia Hypopotassemia | + + documented in this encounter Administered Medications + +--------+ +------+------+------+ | Medication Order | MAR | Action | Dose | Rate | Site | | | Action | Date | | | | + +--------+ +------+------+------+ | LORazepam (ATIVAN) tablet 2 mg | Given | 02/25/20 | 2 mg | | | | 2 mg, Oral, ONCE, 02/24/19 at | | 19 8:55 | | | | | 0110, For 1 dose | | AM PDT | | | | + +--------+ +------+------+------+ +---+---+ | | | +---+---+ + +-------+ +--------+---+---+ | potassium chloride (Klor-Con | Given | 02/25/20 | 40 mEq | | | | M20) ER tablet 40 mEq 40 mEq, | | 19 9:01 | | | | | Oral, DAILY, First dose on Mon | | AM PDT | | | | | 02/23/19 at 2045, Tablet may be cut | | | | | | | where scored but do not crush., | | | | | | + +-------+ +--------+---+---+ +-------+ +--------+---+---+ | Given | 02/24/20 | 40 mEq | | | | | 19 9:26 | | | | | | PM PDT | | | | +-------+ +--------+---+---+ +---+---+ | | | +---+---+ + +-------+ +-------+---+---+ | QUEtiapine (SEROquel) tablet 50 | Given | 02/25/20 | 50 mg | | | | mg 50 mg, Oral, ONCE, Sat | | 12:37 | | | | | 02/24/19 at 0005, For 1 dose | | AM PDT | | | | + +-------+ +-------+---+---+ +---+---+ | | | +---+---+ + +-------+ +-------+---+---+ | QUEtiapine (SEROquel) tablet 50 | Given | 02/25/20 | 50 mg | | | | mg 50 mg, Oral, ONCE, Sat | | 8:56 | | | | | 02/24/19 at 0105, For 1 dose | | AM PDT | | | | + +-------+ +-------+---+---+ +---+---+ | | | +---+---+ documented in this encounter
--- OUTSIDE RECORDS SUMMARY | ~2020-06-24 | XMS | Encounter Summary ---
Demographics + + + | Address | [address] | | | [place] [address] | + + + | Home Phone | | + + + | Preferred Language | Unknown | + + + | Marital Status | Unknown | + + + | Spiritism Affiliation | Unknown | + + + | Race | Unknown | + + + | Ethnic Group | Unknown | + + + Author + + + | Author | [facility] | | | and [place] | + + + | Organization | [facility] | | | and [...] Team Providers + +------+ + | Care Parts Cataloguer Name | Role | Phone | + +------+ + PCP | Unavailable | + +------+ + Encounter Details +--------+ + + + + | Date | Type | Department | Care Team | Description | +--------+ + + + + | 07/02/ | Hospital | [facility] | Kristie Sexton | | | 2011 | Encounter | MED [facility] EM[facility]Y | MD Kelley [place] | | | | | [facility] | [facility], | | | | | [place] | [place] [address] | | | | | [address] | [phone] | | | | | [phone] | | | +--------+ + + + [...] + + documented as of this encounter ED Notes Kristie Sexton MD - 07/02/2012 8:30 AM PDTDATE: 07/02/2012 PRIMARY CARE: Listed as none. CHIEF COMPLAINT: Unclear initially. HISTORY OF PRESENT ILLNESS: This is a 57-year-old female who [facility] [place] [employer]. The patient was found wandering in the comm unity. She was going into people's houses. She was brought in for evaluation by [employer]. She is not under arrest. Upon arrival here she is bizarre and it is really difficult to get any h istory of her. It is not clear if she is supposed to be on medications. She does not have a [place] family with her. She was unclear about answering questions about where her family migh t be. PAST MEDICAL HISTORY: There are no previous visits to the emergency department in the [facility] and initially unclear. MEDICATIONS: Unknown. ALLERGIES: UNKNOWN. REVIEW OF SYSTEMS: Limited by the above. PHYSICAL EXAMINATION VITAL SIGNS: Temperature 36.8, respirations 18, heart rate 85, blood pressure 114/75, O2 s aturation 100% room air, 72 kg. GENERAL: A disheveled female. SKIN: Warm, dry. No arizmendi. Her clothing was soaked in perspiration, but the ambient temper ature was only 79 degrees outside. HEENT: Head normocephalic, atraumatic. Pupils equal, round, reactive to light. No nystagmu s. HEART: Regular rate and rhythm, no tachycardia. LUNGS: Clear auscultation throughout bilaterally. ABDOMEN: Soft, nontender. NEUROLOGIC: The patient is awake. She has bizarre behavior, bizarre speech. She does not a ppear encephalopathic. She yelled out at times. She made many trips out to the emergency d epartment desk requesting to leave, requesting to have fresh clothing and making bizarre st atements. EMERGENCY DEPARTMENT COURSE: The patient arrived here in very unclear circumstances. We at tempted to find previous records on her, but there were none. She is not with any family an d she does not appear overtly intoxicated with alcohol. She is diaphoretic and methamphetam ine could give this appearance , however, urine drug screen was negative for methamphetamin e, positive for benzodiazepines as well as cannabinoids. The remainder of her psych panel showed a little bit low, potassium 3.0. Negative blood alcohol, salicylate and acetaminophe n levels. Essentially normal LFTs and CBC. I talked with Milla from Crisis. She came to the emergency department and evaluated the p atient. The patient has an established mental health history with [facility]. She is supposed to be on Wellbutrin. There is no history of psychosis. Radha mclain's impression is that patient's bizarre behavior here is more volitional and less acut e psychosis and at this point the patient is not felt to meet detainment criteria. She will be returned to [place]. She is able to identify methods on how to do that. She will be advised absolutely no drugs or alcohol and followup with [facility]. IMPRESSION INITIALLY ACUTE PSYCHOSIS AND UNDERLYING FUNCTIONAL DISORDER. DICTATED BY: Kristie Sexton MD Emergency Medicine JOB #: [id number] EXT JOB #:[id number] JOB #: [id number] EXT JOB #:[id number] EDITED: 07/04/2012 08:08 <Electronically Signed by Kristie Sexton MD> 08/04/12 2352 Kristie Sexton MD - 07/02/2012 8:30 AM PDTDATE: 07/02/2012 ADDENDUM PRIMARY CARE: Unknown. EMERGENCY DEPARTMENT COURSE: The patient arrived here in very unclear circumstances. We att empted to find previous records on her, but there were none. She is not with any family and she does not appear overtly intoxicated with alcohol. She is diaphoretic and methamphetami ne could give this appearance, however, urine drug screen was negative for methamphetamine, positive for benzodiazepines as well as cannabinoids. The remainder of her psych panel trupti wed a little bit low, potassium 3.0. Negative bloo d alcohol, salicylate and acetaminophen levels. Essentially normal LFTs and CBC. I talked with Milla from Crisis. She came to the emergency department and evaluated the devyn tapia. The patient has an established mental health history with [facility]. e is supposed to be on Wellbutrin. There is no history of psychosis. S chemo's impression is that chirag ent's bizarre behavior here is more volitional and less acu te psychosis and at this point the patient is not felt to meet detainment criteria. She ernestine l be returned to [place]. She is able to identify methods on how to do that. She will be advised absolutely no drugs or alcohol and followup with [facility]. IMPRESSION INITIALLY ACUTE PSYCHOSIS AND UNDERLYING FUNCTIONAL DISORDER. DICTATED BY: Kristie Sexton MD Emergency Medicine JOB #: [id number] [id number] JOB #:[id number] documented in this encounter Plan of Treatment Not on filedocumented as of this encounter Procedures + +--------+ + + + | Procedure Name | Priori | Date/Time | Associated Diagnosis | Comments | | | ty | | | | + +--------+ + + + | CBC WITH | Routin | 07/02/2012 | | Results for this | | DIFFERENTIAL | e | 10:01 AM | | procedure are in the | | | | PDT | | results section. | + +--------+ + + + | TSH | Routin | 07/02/2012 | | Results for this | | | e | 10:01 AM | | procedure are in the | | | | PDT | | results section. | + +--------+ + + + | ALCOHOL | Routin | 07/02/2012 | | Results for this | | | e | 10:01 AM | | procedure are in the | | | | PDT | | results section. | + +--------+ + + + | ACETAMINOPHEN LEVEL | Routin | 07/02/2012 | | Results for this | | | e | 10:01 AM | | procedure are in the | | | | PDT | | results section. | + +--------+ + + + | SALICYLATE LEVEL | Routin | 07/02/2012 | | Results for this | | | e | 10:01 AM | | procedure are in the | | | | PDT | | results section. | + +--------+ + + + | COMPREHENSIVE | Routin | 07/02/2012 | | Results for this | | METABOLIC PANEL | e | 10:01 AM | | procedure are in the | | | | PDT | | results section. | + +--------+ + + + | DRUGS OF ABUSE, | Routin | 07/02/2012 | | Results for this | | SCREEN, URINE | e | 8:55 AM | | procedure are in the | | | | PDT | | results section. | + +--------+ + + + documented in this encounter Results TSH (07/02/2012 10:01 AM PDT) + + + + + + | Component | Value | Ref Range | Performed | Pathologist | | | | | At | Signature | + + + + + + | TSH | 2.23Comment: Testing | 0.34 - 5.60 | [facility] | | | | performed on the [facility] | uIU/mL | [facility] | | | | [facility] | | MEDICAL | | | | Analyzer. | | CENTER - | | | | | | LABORATORY | | + + + + + + + + | Specimen | + + | | + + + + + + + | Performing | Address | City/State/Zipcode | Phone Number | | Organization | | | | + + + + + | [facility] | [address] | [place], [place] | [phone] | | [facility] | | [address] | | | - LABORATORY | | | | + + + + + | [facility] | [address] | [place], [place] | | | [facility] | | [address], [facility] | | | - LABORATORY | | | | + + + + + CBC with Differential (07/02/2012 10:01 AM PDT) + + + + + + | Component | Value | Ref Range | Performed | Pathologist | | | | | At | Signature | + + + + + + | White Blood | 8.2 | 4.0 - 11.0 K/uL | [facility] | | | Cells | | | [facility] | | | | | | MEDICAL | | | | | | CENTER - | | | | | | LABORATORY | | + + + + + + | Red Blood | 4.32 | 3.70 - 5.20 | [facility] | | | Cells | | M/uL | [facility] | | | | | | MEDICAL | | | | | | CENTER - | | | | | | LABORATORY | | + + + + + + | Hemoglobin | 12.3 | 11.5 - 16.0 | [facility] | | | | | gm/dL | [facility] | | | | | | MEDICAL | | | | | | CENTER - | | | | | | LABORATORY | | + + + + + + | Hematocrit | 35.8 | 34.0 - 47.0 % | [facility] | | | | | | [facility] | | | | | | MEDICAL | | | | | | CENTER - | | | | | | LABORATORY | | + + + + + + | MCV | 82.9 (L) | 83.0 - 101.0 fL | [facility] | | | | | | [facility] | | | | | | MEDICAL | | | | | | CENTER - | | | | | | LABORATORY | | + + + + + + | MCH | 28.4 | 28.0 - 35.0 pg | [facility] | | | | | | [facility] | | | | | | MEDICAL | | | | | | CENTER - | | | | | | LABORATORY | | + + + + + + | MCHC | 34.2 | 32.0 - 36.0 | [facility] | | | | | g/dL | [facility] | | | | | | MEDICAL | | | | | | CENTER - | | | | | | LABORATORY | | + + + + + + | RDW-CV | 13.4 | <15.0 % | [facility] | | | | | | [facility] | | | | | | MEDICAL | | | | | | CENTER - | | | | | | LABORATORY | | + + + + + + | Platelet | 409 | 140 - 440 K/uL | [facility] | | | Count | | | [facility] | | | | | | MEDICAL | | | | | | CENTER - | | | | | | LABORATORY | | + + + + + + | % | 70.4 | 45 - 75 % | [facility] | | | Neutrophils | | | [facility] | | | | | | MEDICAL | | | | | | CENTER - | | | | | | LABORATORY | | + + + + + + | % | 19.6 (L) | 20 - 45 % | [facility] | | | Lymphocytes | | | [facility] | | | | | | MEDICAL | | | | | | CENTER - | | | | | | LABORATORY | | + + + + + + | % Monocytes | 8.5 | 4 - 12 % | [facility] | | | | | | [facility] | | | | | | MEDICAL | | | | | | CENTER - | | | | | | LABORATORY | | + + + + + + | % | 1.0 | 0 - 5 % | [facility] | | | Eosinophils | | | [facility] | | | | | | MEDICAL | | | | | | CENTER - | | | | | | LABORATORY | | + + + + + + | % Basophils | 0.5 | 0 - 1 % | [facility] | | | | | | [facility] | | | | | | MEDICAL | | | | | | CENTER - | | | | | | LABORATORY | | + + + + + + | Absolute | 5.8 | 1.5 - 6.6 K/uL | [facility] | | | Neutrophils | | | [facility] | | | | | | MEDICAL | | | | | | CENTER - | | | | | | LABORATORY | | + + + + + + | Absolute | 1.6 | 0.6 - 3.2 K/uL | [facility] | | | Lymphocytes | | | [facility] | | | | | | MEDICAL | | | | | | CENTER - | | | | | | LABORATORY | | + + + + + + | Absolute | 0.7 | 0.0 - 1.0 K/uL | [facility] | | | Monocytes | | | [facility] | | | | | | MEDICAL | | | | | | CENTER - | | | | | | LABORATORY | | + + + + + + | Absolute | 0.1 | 0.0 - 0.4 K/uL | [facility] | | | Eosinophils | | | [facility] | | | | | | MEDICAL | | | | | | CENTER - | | | | | | LABORATORY | | + + + + + + | Absolute | 0.0 | 0.0 - 0.1 K/uL | [facility] | | | Basophils | | | [facility] | | | | | | MEDICAL | | | | | | CENTER - | | | | | | LABORATORY | | + + + + + + + + | Specimen | + + | | + + + + + + + | Performing | Address | City/State/Zipcode | Phone Number | | Organization | | | | + + + + + | [facility] | [address] | [place] | [phone] | | [facility] | | [address] | | | - LABORATORY | | | | + + + + + | [facility] | [address] | [place], [place] | | | [facility] | | [address], [facility] | | | - LABORATORY | | | | + + + + + Comprehensive Metabolic Panel (07/02/2012 10:01 AM PDT) + + + + + + | Component | Value | Ref Range | Performed | Pathologist | | | | | At | Signature | + + + + + + | Glucose | 113 (H) | 70 - 109 mg/dL | [facility] | | | | | | [facility] | | | | | | MEDICAL | | | | | | CENTER - | | | | | | LABORATORY | | + + + + + + | Calcium | 9.0 | 8.3 - 10.5 | [facility] | | | | | mg/dL | [facility] | | | | | | MEDICAL | | | | | | CENTER - | | | | | | LABORATORY | | + + + + + + | Alkaline | 87 | 40 - 110 IU/L | [facility] | | | Phosphatase | | | [facility] | | | | | | MEDICAL | | | | | | CENTER - | | | | | | LABORATORY | | + + + + + + | AST | 63 (H) | 10 - 42 IU/L | [facility] | | | | | | [facility] | | | | | | MEDICAL | | | | | | CENTER - | | | | | | LABORATORY | | + + + + + + | ALT | 37 | 6 - 45 IU/L | [facility] | | | | | | [facility] | | | | | | MEDICAL | | | | | | CENTER - | | | | | | LABORATORY | | + + + + + + | Bilirubin | 0.8 | 0.2 - 1.0 mg/dL | [facility] | | | Total | | | [facility] | | | | | | MEDICAL | | | | | | CENTER - | | | | | | LABORATORY | | + + + + + + | Total | 6.8 | 6.0 - 7.8 gm/dL | [facility] | | | Protein | | | [facility] | | | | | | MEDICAL | | | | | | CENTER - | | | | | | LABORATORY | | + + + + + + | Albumin | 3.7 | 3.2 - 5.0 gm/dL | [facility] | | | | | | [facility] | | | | | | MEDICAL | | | | | | CENTER - | | | | | | LABORATORY | | + + + + + + | BUN | 5 (L) | 7 - 18 mg/dL | [facility] | | | | | | [facility] | | | | | | MEDICAL | | | | | | CENTER - | | | | | | LABORATORY | | + + + + + + | Creatinine | 0.67 | 0.60 - 1.30 | [facility] | | | | | mg/dL | [facility] | | | | | | MEDICAL | | | | | | CENTER - | | | | | | LABORATORY | | + + + + + + | Estimated | >60Comment: For | >60 mL/min/A | [facility] | | | GFR | -Americans, | | [facility] | | | | please multiply the | | MEDICAL | | | | result by 1.210 | | CENTER - | | | | This is an estimated | | LABORATORY | | | | GFR and is based on a | | | | | | standard adult | | | | | | body mass (A=1.73m2) and | | | | | | serum creatinine | | | | + + + + + + | BUN/Creatin | 7.5 (L) | 12 - 20 | [facility] | | | ine Ratio | | | [facility] | | | | | | MEDICAL | | | | | | CENTER - | | | | | | LABORATORY | | + + + + + + | Na | 132 (L) | 136 - 149 mEq/L | [facility] | | | | | | [facility] | | | | | | MEDICAL | | | | | | CENTER - | | | | | | LABORATORY | | + + + + + + | K | 3.0 (L)Comment: LOW | 3.5 - 5.1 mEq/l | [facility] | | | | POTASSIUM OFTEN | | [facility] | | | | ASSOCIATES WITH LOW | | MEDICAL | | | | MAGNESIUM. IF THIS MAY | | CENTER - | | | | BE RELEVANT IN THIS | | LABORATORY | | | | CASE, PLEASE ORDER | | | | | | MAGNESIUM LEVEL. | | | | + + + + + + | Cl | 98 | 98 - 109 mEq/l | [facility] | | | | | | [facility] | | | | | | MEDICAL | | | | | | CENTER - | | | | | | LABORATORY | | + + + + + + | CO2 | 28 | 24 - 31 mEq/L | [facility] | | | | | | [facility] | | | | | | MEDICAL | | | | | | CENTER - | | | | | | LABORATORY | | + + + + + + | Anion Gap | 9.0 | 6.0 - 17.0 | [facility] | | | | | | [facility] | | | | | | MEDICAL | | | | | | CENTER - | | | | | | LABORATORY | | + + + + + + + + | Specimen | + + | | + + + + + + + | Performing | Address | City/State/Zipcode | Phone Number | | Organization | | | | + + + + + | [facility] | [address] | [place] | [phone] | | [facility] | | [address] | | | - LABORATORY | | | | + + + + + | [facility] | [address] | [place], [place] | | | [facility] | | [address], [facility] | | | - LABORATORY | | | | + + + + + Acetaminophen Level (07/02/2012 10:01 AM PDT) + +-------+ + + + | Component | Value | Ref Range | Performed | Pathologist | | | | | At | Signature | + +-------+ + + + | Acetaminoph | <10 | 10 - 30 ug/mL | [facility] | | | en Level | | | [facility] | | | | | | MEDICAL | | | | | | CENTER - | | | | | | LABORATORY | | + +-------+ + + + + + | Specimen | + + | | + + + + + + + | Performing | Address | City/State/Zipcode | Phone Number | | Organization | | | | + + + + + | [facility] | [address] | [place] | [phone] | | [facility] | | [address] | | | - LABORATORY | | | | + + + + + | [facility] | [address] | [place], [place] | | | [facility] | | [id number] | | | - LABORATORY | | | | + + + + + Salicylate Level (07/02/2012 10:01 AM PDT) + +-------+ + + + | Component | Value | Ref Range | Performed | Pathologist | | | | | At | Signature | + +-------+ + + + | Salicylate | <4 | <30 mg/dL | [facility] | | | Level | | | [facility] | | | | | | MEDICAL | | | | | | CENTER - | | | | | | LABORATORY | | + +-------+ + + + + + | Specimen | + + | | + + + + + + + | Performing | Address | City/State/Zipcode | Phone Number | | Organization | | | | + + + + + | [facility] | [address] | [place], [place] | [phone] | | [facility] | | [address] | | | - LABORATORY | | | | + + + + + | [facility] | [address] | [place], [place] | | | [facility] | | [id number] | | | - LABORATORY | | | | + + + + + Ethanol (07/02/2012 10:01 AM PDT) + +-------+ + + + | Component | Value | Ref Range | Performed | Pathologist | | | | | At | Signature | + +-------+ + + + | ALCOHOL, | <5 | mg/dL | [facility] | | | SERUM/PLASM | | | [facility] | | | A | | | MEDICAL | | | | | | CENTER - | | | | | | LABORATORY | | + +-------+ + + + + + | Specimen | + + | | + + + + + + + | Performing | Address | City/State/Zipcode | Phone Number | | Organization | | | | + + + + + | [facility] | [address] | [place] | [phone] | | [facility] | | [address] | | | - LABORATORY | | | | + + + + + | [facility] | [address] | [place] | | | [facility] | | [address], [facility] | | | - LABORATORY | | | | + + + + + Drugs of Abuse, Screen, Urine (07/02/2012 8:55 AM PDT) + + + + + + | Component | Value | Ref Range | Performed | Pathologist | | | | | At | Signature | + + + + + + | Amphetamine | NEGATIVE | NEGATIVE | [facility] | | | Screen, | | | [facility] | | | Urine | | | MEDICAL | | | | | | CENTER - | | | | | | LABORATORY | | + + + + + + | Barbiturate | NEGATIVE | NEGATIVE | [facility] | | | s Screen, | | | [facility] | | | Urine | | | MEDICAL | | | | | | CENTER - | | | | | | LABORATORY | | + + + + + + | Benzodiazep | POSITIVE | NEGATIVE | [facility] | | | greg | | | [facility] | | | Screen, | | | MEDICAL | | | Urine | | | CENTER - | | | | | | LABORATORY | | + + + + + + | Cannabinoid | POSITIVE | NEGATIVE | [facility] | | | s Screen, | | | [facility] | | | Urine | | | MEDICAL | | | | | | CENTER - | | | | | | LABORATORY | | + + + + + + | Cocaine | NEGATIVE | NEGATIVE | [facility] | | | Metabolite | | | [facility] | | | | | | MEDICAL | | | | | | CENTER - | | | | | | LABORATORY | | + + + + + + | Methadone | NEGATIVE | NEGATIVE | [facility] | | | Screen, | | | [facility] | | | Urine | | | MEDICAL | | | | | | CENTER - | | | | | | LABORATORY | | + + + + + + | Opiates | NEGATIVEComment: The | NEGATIVE | [facility] | | | Screen, | following drugs or | | [facility] | | | Urine | classes were screened | | MEDICAL | | | | for by immunoassay at | | CENTER - | | | | these cutoff | | LABORATORY | | | | concentrations: | | | | | | Amphetamines | | | | | | 1000 ng/mL | | | | | | Barbiturates | | | | | | 200 ng/mL | | | | | | Benzodiazepines | | | | | | 200 ng/mL | | | | | | Cannabinoids | | | | | | 50 ng/mL | | | | | | Cocaine Metabolite | | | | | | 300 ng/mL | | | | | | Methadone | | | | | | 300 ng/mL | | | | | | Opiates | | | | | | 300 ng/mL | | | | | | This emergency urinary | | | | | | drug screen will not | | | | | | exclude drugs at | | | | | | levels below the | | | | | | cut-off point for | | | | | | screening, and may not | | | | | | correlate with current | | | | | | blood levels. These | | | | | | results should not be | | | | | | used for non-medical | | | | | | purposes. For important | | | | | | clinical decisions, | | | | | | confirmation by separate | | | | | | assay should be done. | | | | | | | | | | + + + + + + + + | Specimen | + + | | + + + + + + + | Performing | Address | City/State/Zipcode | Phone Number | | Organization | | | | + + + + + | [facility] | [address] | [place], [place] | [phone] | | [facility] | | [address] | | | - LABORATORY | | | | + + + + + | [facility] | [address] | [place], [place] | | | [facility] | | [id number] [place] [address] | | | - LABORATORY | | | | + + + + + documented in this encounter Visit Diagnoses Not on filedocumented in this encounter"
--- OUTSIDE RECORDS SUMMARY | ~2020-06-24 | XMS | Clinical Summary ---
Demographics + + + | Address | [address] | | | [place] [address] | + + + | Home Phone | | + + + | Preferred Language | Unknown | + + + | Marital Status | Unknown | + + + | Latter-Day Affiliation | Unknown | + + + | Race | Unknown | + + + | Ethnic Group | Unknown | + + + Author + + + | Author | [facility] | | | and [place] | + + + | Organization | [facility] | | | and [place] [...] Team Providers + +------+ + | Care Web Developer Programmer Name | Role | Phone | + [...] on file | | + + + Last Filed Vital Signs + [...] | | + + + + + Plan of Treatment + + +-------+ + | Health Maintenance | Due Date | Last | Comments | | | | Done | | + + +-------+ + | Hepatitis C | | | | | Screening | 7 | | | + + +-------+ + | Vaccine: | | | | | Pneumococcal 19-64 | 3 | | | | (1 of 1 - PPSV23) | | | | + + +-------+ + | Vaccine: | | | | | Dtap/Tdap/Td (1 - | 6 | | | | Tdap) | | | | + + +-------+ + | Cervical Cancer | | | | | Screening (Pap) | 7 | | | + + +-------+ + | Colorectal Cancer | | | | | Screening | 7 | | | | (Colonoscopy) | | | | + + +-------+ + | Vaccine: Zoster (1 | | | | | of 2) | 7 | | | + + +-------+ + | Breast Cancer | | | | | Screening | 2 | | | + + +-------+ + | Vaccine: Influenza | | | | | (#1) | 0 | | | + + +-------+ + Results Not on filefrom Last 3 [...] | [employer] | [facility] | [id number] | 02/24/20 | [phone] | | Med[employer] | | MEDICAID HMO [...] | Self | [birth year] | [address] | | | al/Fam | | 7 | [phone] | [place] | | | brett | | | 1 (Home) | [address] | + +--------+ +--------+ + + Advance Directives + + + + + | Type | Date Recorded | Patient | Explanation | | | | Enrollment Management Director | | + + + + + | Power of | | | | | Director Of Community Services | | | | + + + + + | Advance | | | | | Directive | | | | + + + + +
--- OUTSIDE RECORDS SUMMARY | ~2020-06-24 | XMS | Encounter Summary ---
Demographics + + + | Address | [address] | | | [place] [address] | + + + | Home Phone | | + + + | Preferred Language | Unknown | + + + | Marital Status | Unknown | + + + | Judaism Affiliation | Unknown | + + + | Race | Unknown | + + + | Ethnic Group | Unknown | + + + Author + + + | Author | [facility] | | | and [place] | + + + | Organization | [facility] | | | and [place] [...] Team Providers + +------+ + | Care Tactical Debriefer Name | Role | Phone | + +------+ + PCP | Unavailable | + +------+ + Encounter Details +--------+ + + + + | Date | Type | Department | Care Team | Description | +--------+ + + + + | 06/20/ | Hospital | [facility] | Moises Monge | | | 2006 | Encounter | MED CTR SLEEP | MD Zohreh [address] | | | | | [address] [address] | [place] | | | | | [place] | [place] [id number] | | | | | [id number] | [phone] | | | | | [phone] | | | +--------+ + + + [...]
--- OUTSIDE RECORDS SUMMARY | 2020-06-24 14:56 | XMS ---
PreManage Notification: ZANDRA LOAIZA Security Knife Changer Events No recent Security Events currently on file CRITERIA MET - [facility] - Has Care Guidelines - PDMP CARE PROVIDERS CHRISTINA FLORES Internal Medicine 02/02/2019-Current PHONE: [phone] Guidelines Source: [facility] [place] Guidelines Date: 09/21/2019 Care Coordination: Receives mental health services with [facility].\T\nbsp; Please contact [facility] for any mental health concerns.\T\nbsp; Ginny/Jignesh Ruiz: [phone]\ T\nbsp; Oziel: [phone]. Care History Medical/Surgical 02/13/2019 [facility] - PATIENT HAS NOT CONTACTED PCP OFFICE. DR SANDRA SANDY HAS TRIED TO CONTACT PATIENT AND LEFT A VOICEMAIL. - PATIENT HAS NOT SEEN PCP SINCE 08/01/2018 AND NEEDS FURTHER FOLLOW UP WITH PCP. 02/02/2019 [facility] - CHW RECEIVED ED CASE MANAGEMENT CONSULT- WITH PATIENT REQUEST TO GO TO [facility]. TRANSIT AUTHORITY POLICE OFFICER WAS INVOLVED WITH PATIENT ALONG WITH [employer]. CHW CONTACTED [facility] OF [facility] AND ADVISED OF REFERRAL. - Patient is currently established with [facility]. If patient is seen in the ED during business hours. Please contact CHWs at [facility]. Care Recommendation: This patient has had 5 or more Emergency Department visits in the last 12 months.\T\nbsp; Patient requires education on the scope and purpose of the ED as an acute care provider not a Primary Care Provider and should not be utilized for chronic conditions.\T\nbsp; These are guidelines and the provider should exercise clinical judgment when providing care. EJesicaD. VISIT COUNT (12 MO.) 5 PATIENCE Arreguin TOTAL 5 NOTE: Visits indicate total known visits. ED/UCC VISIT TRACKING (12 MO.) 06/24/2020 14:53 PATIENCE Carrasco [place] TYPE: Emergency COMPLAINT: - LOW BLOOD COUNT/DIZZINESS 09/26/2019 11:47 PATIENCE Carrasco [place] TYPE: Emergency COMPLAINT: - MEDICAL CLEARANCE DIAGNOSES: - Allergy status to other drugs, medicaments and biological sub - Allergy status to narcotic agent status - Major depressive disorder, single episode, unspecified - Hypothyroidism, unspecified - Post-traumatic stress disorder, unspecified - Other fci (current) drug therapy 09/21/2019 11:24 PATIENCE Carrasco [place] TYPE: Emergency COMPLAINT: - MEDICAL CLEARANCE 09/19/2019 08:00 PATIENCE Carrasco [place] TYPE: Emergency COMPLAINT: - BACK/SHOULDER PAIN NON INJURY DIAGNOSES: - Other oysterman (current) drug therapy - Nicotine dependence, unspecified, uncomplicated - Allergy status to narcotic agent status - Hypothyroidism, unspecified - Bipolar disorder, unspecified - Pain, unspecified 09/19/2019 02:22 PATIENCE Carrasco [place] TYPE: Emergency COMPLAINT: - MED CLEARANCE DIAGNOSES: - Hypo-osmolality and hyponatremia - Encounter for other general examination - Other fci (current) drug therapy - Bipolar disorder, unspecified - Allergy status to narcotic agent status - Hypothyroidism, unspecified - Schizophrenia, unspecified INPATIENT VISIT TRACKING (12 MO.) 09/21/2019 17:[address] [facility] St. Humza Gross [place] TYPE: Critical Care COMPLAINT: - HYPONATREMIA DIAGNOSES: - Hypothyroidism, unspecified - Post-traumatic stress disorder, unspecified - Restless legs syndrome - senior living (current) use of inhaled steroids - Nicotine dependence, cigarettes, uncomplicated - Allergy status to narcotic agent status - Allergy status to other drugs, medicaments and biological sub - Bipolar disorder, current episode manic severe with psychotic - Fibromyalgia - Polydipsia - Cannabis dependence, uncomplicated - Other oysterman (current) drug therapy - Metabolic encephalopathy - Hypo-osmolality and hyponatremia [email or web address]
[2020-06-24] MEDS ORDERED: PROZAC10 MG PO (15:10)
[2020-06-24] MEDS ORDERED: ABILIFY15 MG PO (15:11)
[2020-06-24] MEDS ORDERED: WELLBUTRIN XL150 MG PO (15:11)
[2020-06-24] MEDS ORDERED: FERROUS GLUCON324 M1 PO (16:29)
== END 2020-06-24 16:38 | disposition home or self-care (01) ==
LOC: ED 14:53
DX: D50.9 Iron deficiency anemia, unspecified (principal); F31.9 Bipolar disorder, unspecified; F43.10 Post-traumatic stress disorder, unspecified; E03.9 Hypothyroidism, unspecified; Z87.891 Personal history of nicotine dependence; Z88.8 Allergy status to other drugs, medicaments and biological substances; Z88.5 Allergy status to narcotic agent; Z79.899 Other long term (current) drug therapy
CPT/HCPCS: 80053; 85025; 86850; 86900; 86901; 86920; 99284; P9016

== ENCOUNTER 2020-07-27 07:55 | Day surgery (SDC) | payer OTHER ==
[~2020-07-27] VITALS: Ht 160 cm; Wt 73.5 kg
[~2020-07-27 07:55] MED LIST changes: +ABILIFY15 MG PO; +FERROUS GLUCON324 M1 PO; +SEROQUEL XR150 MG PO
--- NOTE | 2020-07-27 10:06 | NUR ---
PT UPDATED ON WAIT TIME PRIOR TO PROCEDURE. WARM BLANKETS PROVIDED AND PT ESCORTED TO THE BR. THE PT'S [employer] NURSE LEFT OUR FACILITY AT 0915.
--- NOTE | 2020-07-27 12:54 | NUR ---
07/27/20 1254 Sheets,Anisa 1240 PT ARRIVED TO PACU ON 4L NC AND ORAL AIRWAY IN PLACE. VSS. 1244 PT WAKES AND ORAL AIRWAY REMOVED. PT DENIES PAIN AND NAUSEA. PT PASSING GAS AND EDUCATION GIVEN.
--- NOTE | 2020-07-28 07:24 | OR ---
[facility] [address] [place], [place] [address] Signed DATE OF OPERATION: 07/27/2020 SURGEON: Belén Marc MD PREOPERATIVE DIAGNOSES: 1. Anemia. 2. Dark guaiac-positive stools. 3. Constipation, diarrhea. 4. Heartburn, nausea. POSTOPERATIVE DIAGNOSES: 1. Healing duodenal ulcer (pyloric bulb). 2. Mild gastroduodenitis. 3. 5 mm polyps x2 at 18 cm (rectosigmoid junction). 4. 4 mm polyp mid rectum. 5. 4 mm polyp at 5 cm. 6. Moderate internal hemorrhoids. PROCEDURES: 1. Esophagogastroduodenoscopy with CLOtest and biopsies of the duodenum, pyloric bulb and antrum. 2. Colonoscopy with hot biopsy. ESTIMATED BLOOD LOSS: None. INDICATIONS: Zandra is a year-old lady with significant bipolar disorder. Consequently, she does come with her counselor/caregiver on her office visit and today as well. More recently, she was found to be anemic and required a couple units of packed red blood cells. She had been complaining about dark stool and the stool sample came back guaiac positive. She also said that she has some alternating constipation, diarrhea and often has heartburn and nausea. To her knowledge, she has no family history of colon cancer or polyps. She has never had a previous colonoscopy because she has declined them in the past. In the office, I reviewed with Zandra and her caregiver, who happens to be a registered nurse, the nature of a colonoscopy. I gave them a pamphlet on colonoscopy, so we could look at that together. Her nurse has been through a colonoscopy herself. They understand there is risk including, but not limited to gas bloating, crampy abdominal pain, bleeding, perforation requiring surgery, and missed diagnosis. We also discussed the need for IV conscious sedation. Given Zandra's significant medical issues, Electronically Signed By: BELÉN MARC MD 07/28/20 0724 PATIENT NAME: ZANDRA LOAIZA OPERATIVE REPORT DATE OF : 59 REPORT #: [id number] PHYSICIAN: BELÉN MARC MD PCP: SUSAN STRE[address] PA-C REPORT IS CONFIDENTIAL AND NOT TO BE RELEASED WITHOUT AUTHORIZATION [facility] [address] [place] [id number] Signed we asked that an anesthesia provider help with increased monitoring sedation with propofol. She had expressed understanding and wished to proceed. PROCEDURE NOTE: Once again, I met with Zandra and her caregiver this morning and answered their questions. After that, we went into the endoscopy suite and placed Zandra in the supine semi-recumbent position. She was given monitored anesthesia care per our nurse vascular tech. A bite block was utilized for the case. The adult gastroscope was introduced and advanced under direct visualization of camera without difficulty. We came into the antrum of the stomach and passed into the pyloric bulb. We could see a puckered area right on the remnant she passed from the pylorus into the duodenum. This is classic area for ulcers. We spent quite a bit of time in this area and it looks like she has had an ulcer that is now healing. She had some surrounding erythematous changes along with a little edema. The base was clean and there was no bleeding. The duodenum proper was unremarkable. We took a biopsy of the duodenum because of the history of diarrhea. We also took a biopsy of the pyloric bulb and antrum. The antrum also showed some mild erythematous changes. We took an additional biopsy of the antrum for CLOtest. The incisura body and fundus of the stomach were unremarkable. Upon retroflexion of scope, she does not have an obvious hiatal hernia. The scope was withdrawn up to the area of the GE junction, which was compliant without stricture. Very minimal disruption to her Z-line. No Murillo's mucosa. No distal esophagitis. The middle and upper esophagus were unremarkable. After this, the gas was suctioned out and the gastroscope removed. Zandra tolerated the procedure quite well. Zandra was then rotated into the left lateral decubitus position. She was maintained on IV propofol per our nurse vascular tech. A digital rectal exam was performed and this was unremarkable. The adult colonoscope was introduced and advanced under direct visualization of camera. It took a few minutes to get through Zandra's tortuous somewhat long sigmoid colon. It was also a bit angulated. She also has moderate diverticulosis to the sigmoid colon. Eventually made our way around into the area of hepatic flexure. It took some additional sedation, abdominal compression and rotating Zandra on the bed until we finally got the camera right down into the cecum itself. Overall, her prep was good. There were a couple areas of moderate pasty particulate of stool matter we simply could not suction and irrigate out. She might consider some additional bowel prep in the future. We had taken pictures throughout for photodocumentation. We could easily see the appendiceal orifice and the ileocecal valve. The scope was slowly withdrawn. The above-mentioned polyps were easily removed with the help of the hot biopsy forceps. There was some additional tiny hyperplastic appearing polyps in the rectum we simply cauterized. Upon retroflexion of scope she does have moderate internal hemorrhoid columns. After this, the gas was suctioned out. The colonoscope removed. Zandra tolerated the procedure quite well. Electronically Signed By: BELÉN MARC MD 07/28/20 0724 PATIENT NAME: ZANDRA LOAIZA OPERATIVE REPORT DATE OF : 59 REPORT #: [id number] PHYSICIAN: BELÉN MARC MD PCP: SUS[address]RE[address] REPORT IS CONFIDENTIAL AND NOT TO BE RELEASED WITHOUT AUTHORIZATION [facility] [address] [place] [id number] Signed RECOMMENDATIONS: I will see Zandra back in my office in 7 to 14 days to review her results. No aspirin or NSAIDs for a week. In addition, she might consider a double bowel prep in the future. MD JODIE Mistry/MODL /[id number] cc: MD Susan Mistry PA [facility] Copies: BELÉN MARC MD ~ Electronically Signed By: BELÉN MARC MD 07/28/20 0724 PATIENT NAME: ZANDRA LOAIZA OPERATIVE REPORT DATE OF : 59 REPORT #: [id number] PHYSICIAN: BELÉN MARC MD PCP: SUSAN STRE[address] PA-C REPORT IS CONFIDENTIAL AND NOT TO BE RELEASED WITHOUT AUTHORIZATION
--- NOTE | 2020-07-28 14:54 | PATH ---
[facility] [address] [place] [address] Signed SPECIMEN(S): A DUODENUM SPECIMEN(S): B PYLORIC BULB SPECIMEN(S): C ANTRUM SPECIMEN(S): D RECTAL POLYP AT 5 CM SPECIMEN(S): E COLON POLYP AT 10 CM SPECIMEN(S): F DISTAL SIGMOID AT 18 CM SPECIMEN SOURCE: A. DUODENUM B. PYLORIC BULB C. ANTRUM D. RECTAL POLYP AT 5 CM E. COLON POLYP AT 10 CM F. DISTAL SIGMOID AT 18 CM CLINICAL HISTORY: Anemia. Postop: Gastroduodenitis, diverticulosis, rectal polyps, internal hemorrhoids. MICROSCOPIC DESCRIPTION: Histologic sections of all submitted blocks are examined by light microscopy. These findings, together with the gross examination, support the pathologic diagnosis. FINAL PATHOLOGIC DIAGNOSIS: A. Duodenum, biopsy: - Benign small bowel-type mucosa, negative for specific diagnostic abnormality. B. Pyloric bulb: - Benign small bowel-type mucosa, negative for specific diagnostic abnormality. C. Antrum, biopsy: - Antral-type mucosa with focal slight chronic inflammation. - Negative for evidence of Helicobacter organisms on routine HE stained sections. D. Rectal polyp at 5 cm: - Hyperplastic polyp (multiple fragments). E. Colon polyp at 10 cm: - Hyperplastic polyp (two fragments). F. Distal sigmoid at 18 cm: - Hyperplastic polyp with focal superficial epithelial erosion (three fragments). PATIENT NAME: ZANDRA LOAIZA [facility] PATHOLOGY DATE OF : 59 REPORT #: [id number] PHYSICIAN: LUIS MANUEL LESLIE PCP: SUSAN STRE[address] PA-C REPORT IS CONFIDENTIAL AND NOT TO BE RELEASED WITHOUT AUTHORIZATION [facility] [address] [place], [place] [address] Signed [id number] GROSS DESCRIPTION: Six specimens are received in six containers, labeled "LW." A. The specimen, labeled "LW, #1," and designated on the requisition "duodenum," is received in formalin and consists of one finley soft tissue fragment that measures 0.4 cm in greatest dimension. The specimen is entirely submitted in cassette (A1). B. The specimen, labeled "LW, #2," and designated on the requisition "pyloric bulb," is received in formalin and consists of three finley soft tissue fragments that measure 0.4 cm in greatest dimension. The specimen is entirely submitted in cassette (B1). C. The specimen, labeled "LW, #3," and designated on the requisition "antrum," is received in formalin and consists of one finley soft tissue fragment that measures 0.3 cm in greatest dimension. The specimen is entirely submitted in cassette (C1). D. The specimen, labeled "LW, #4," and designated on the requisition "rectal polyp at 5 cm," is received in formalin and consists of five finley soft tissue fragments that measure 0.4 cm in greatest dimension. The specimen is entirely submitted in cassette (D1). E. The specimen, labeled "LW, #5," and designated on the requisition "colon polyp at 10 cm," is received in formalin and consists of two finley soft tissue fragments that measure 0.2 cm in greatest dimension. The specimen is entirely submitted in cassette (E1). F. The specimen, labeled "LW, #6," and designated on the requisition "distal sigmoid at 18 cm," is received in formalin and consists of three finley soft tissue fragments that measure 0.4 cm in greatest dimension. The specimen is entirely submitted in cassette (F1). AT (under the direct supervision of a pathologist) The Gross Description was prepared using a voice recognition system. The report was reviewed for accuracy; however, sound-alike word errors, addition and/or deletions may occur. If there is any question about this report, please contact Client Services. PERFORMING LABORATORY: The technical component was performed by [facility], [address] [place] [id number] ([employer] Information Clerk: Rani Chery MD; CLIA# [id number]). Professional interpretation was performed by [facility] [address] ([employer] Information Clerk: Luis Booker M.D.). PATIENT NAME: ZANDRA LOAIZA PATHOLOGY DATE OF : 59 REPORT #: [id number] PHYSICIAN: LUIS MANUEL PATHOLOGY PCP: SUSAN STRE[address] PA-C REPORT IS CONFIDENTIAL AND NOT TO BE RELEASED WITHOUT AUTHORIZATION [facility] [address] [place] [id number] Signed Diagnostician: Luis Booker MD Pathologist Electronically Signed 07/28/2020 Copies: ~ PATIENT NAME: ZANDRA LOAIZA PATHOLOGY DATE OF : 59 REPORT #: [id number] PHYSICIAN: LUIS MANUEL PATHOLOGY PCP: SUSAN STRE[address] PA-C REPORT IS CONFIDENTIAL AND NOT TO BE RELEASED WITHOUT AUTHORIZATION
== END 2020-07-27 13:38 | disposition home or self-care (01) ==
LOC: DS 07:55 → OPS 07:55 → DS 09:00 → OPS 10:45
PROVIDERS: ATTEND Colon & Rectal Surgery
PROC: 0DBN8ZZ Excision of Sigmoid Colon, Via Natural or Artificial Opening Endoscopic (ICD-10-PCS; 2020-07-27)
PROC: 0DB98ZX Excision of Duodenum, Via Natural or Artificial Opening Endoscopic, Diagnostic (ICD-10-PCS; 2020-07-27)
PROC: 0DB78ZX Excision of Stomach, Pylorus, Via Natural or Artificial Opening Endoscopic, Diagnostic (ICD-10-PCS; 2020-07-27)
PROC: 0DBP8ZZ Excision of Rectum, Via Natural or Artificial Opening Endoscopic (ICD-10-PCS; principal; 2020-07-27 10:45)
PROC: 0DBE8ZZ Excision of Large Intestine, Via Natural or Artificial Opening Endoscopic (ICD-10-PCS; 2020-07-27 10:45)
DX: K63.5 Polyp of colon (principal); K62.1 Rectal polyp; D64.9 Anemia, unspecified; K64.8 Other hemorrhoids; K57.30 Diverticulosis of large intestine without perforation or abscess without bleeding; K29.50 Unspecified chronic gastritis without bleeding; F31.9 Bipolar disorder, unspecified; E55.9 Vitamin D deficiency, unspecified; E03.9 Hypothyroidism, unspecified; M79.7 Fibromyalgia; F43.10 Post-traumatic stress disorder, unspecified; F17.210 Nicotine dependence, cigarettes, uncomplicated; Z79.899 Other long term (current) drug therapy
CPT/HCPCS: 86677; J2001; J2704; J3010

== ENCOUNTER 2022-08-03 20:49 | Emergency (ER) | payer MEDICARE, OTHER ==
[~2022-08-03] VITALS: Ht 160 cm; Wt 84.0 kg
[2022-08-03] MEDS ORDERED: OMEPRAZOLE20 MG PO (21:53)
[2022-08-04] MEDS ORDERED: CEPHALEXIN500 M1 PO (01:53)
== END 2022-08-04 02:12 | disposition home or self-care (01) ==
LOC: ED 20:49
DX: N39.0 Urinary tract infection, site not specified (principal); F43.10 Post-traumatic stress disorder, unspecified; E03.9 Hypothyroidism, unspecified; Z87.891 Personal history of nicotine dependence; Z88.8 Allergy status to other drugs, medicaments and biological substances; Z88.5 Allergy status to narcotic agent; Z79.899 Other long term (current) drug therapy
CPT/HCPCS: 36415; 74177; 80053; 81001; 83690; 85025; 96361; 99284-25; A9270; J2405; J7030; Q9967

== ENCOUNTER 2023-01-28 16:17 | Emergency (ER) | payer MEDICARE, OTHER ==
[~2023-01-28] VITALS: Ht 160 cm; Wt 79.0 kg
[~2023-01-28 16:17] MED LIST changes: +CEPHALEXIN500 M1 PO; +OMEPRAZOLE20 MG PO
[2023-01-28] MEDS ORDERED: VITAMIN D21250 MCG PO (18:11)
[2023-01-28] MEDS ORDERED: QUETIAPINE FUM200 MG PO (18:12)
[2023-01-28] MEDS ORDERED: FLUOXETINE HCL40 MG PO (18:12)
[2023-01-28] MEDS ORDERED: PRAMIPEXOLE DI0.5 MG PO (18:12)
[2023-01-28] MEDS ORDERED: DICLOFENAC SOD100 G1 TOP (18:12)
== END 2023-01-28 19:18 | disposition home or self-care (01) ==
LOC: ED 16:17
DX: H60.93 Unspecified otitis externa, bilateral (principal); F43.10 Post-traumatic stress disorder, unspecified; E03.9 Hypothyroidism, unspecified; Z87.891 Personal history of nicotine dependence; Z88.8 Allergy status to other drugs, medicaments and biological substances; Z88.5 Allergy status to narcotic agent; Z79.899 Other long term (current) drug therapy
CPT/HCPCS: 81001; 99283

== ENCOUNTER 2023-12-07 02:08 | Emergency (ER) | payer MEDICARE, OTHER ==
[~2023-12-07] VITALS: Ht 160 cm; Wt 64.9 kg
[~2023-12-07 02:08] MED LIST changes: +DICLOFENAC SOD100 G1 TOP; +FLUOXETINE HCL40 MG PO; +PRAMIPEXOLE DI0.5 MG PO; +QUETIAPINE FUM200 MG PO; +VITAMIN D21250 MCG PO
[2023-12-07 02:43] LABS: BASOPHILS 0.7 % (0-2); EOSINOPHILS 1.7 % (0-6); HEMATOCRIT 32.1 % (35.0-50.0); HEMOGLOBIN 11.1 g/dL (12.0-18.0); LYMPHOCYTES 14.4 % (24-44); MCH 27.7 (27-36); MCHC 34.4 g/dl (30-36); MCV 80.6 fl (81-99); MONOCYTES 7.2 % (0-12); PLATELET COUNT 539 K/uL (140-440); RBC 3.99 M/ul (4.3-5.7); RDW 13.6 (10.5-15.0)
[2023-12-07 02:55] LABS: ALBUMIN 3.2 g/dL (3.4-5.0); ALCOHOL, MEDICAL <3 ng/dL (<3); ALKALINE PHOSPHATASE 94 U/L (46-116); ALT (SGPT) 25 U/L (14-59); ANION GAP 13.3 (7-21); AST (SGOT) 43 U/L (15-37); BILIRUBIN, TOTAL 0.8 ng/dL (0.2-1.0); BUN/CREATININE RATIO 8.69 (6.0-28.6); CALCIUM 9.2 mg/dL (8.5-10.1); CARBON DIOXIDE 25 mmol/L (21-32); CHLORIDE 101 mmol/L (98-107); CREATININE, SERUM 0.92 mg/dL (0.55-1.02); GLOMERULAR FILTRATION RATE,EST 69 mL/min (>60); POTASSIUM 3.3 mmol/L (3.5-5.1); PROTEIN, TOTAL 7.8 g/dL (6.4-8.2); UREA NITROGEN 8 mg/dL (7-18)
[2023-12-07 03:11] LABS: BILIRUBIN, URINE NEGATIVE (negative); BLOOD/HGB, URINE SMALL (Negative); KETONE, URINE NEGATIVE (Negative); LEUK ESTERASE, URINE NEGATIVE (negative); NITRITE, URINE NEGATIVE (negative)
[2023-12-07 03:28] LABS: AMPHETAMINES, URINE POSITIVE (NEGATIVE); BACTERIA, URINE RARE /hpf (negative); BARBITURATES, URINE NEGATIVE (NEGATIVE); BENZODIAZEPINE, URINE NEGATIVE (NEGATIVE); BUPRENORPHINE, URINE NEGATIVE (NEGATIVE); CANNABINOID, URINE NEGATIVE (NEGATIVE); COCAINE, URINE NEGATIVE (NEGATIVE); CRYSTALS, URINE NONE SEEN (0-1+); ECSTASY, URINE POSITIVE (NEGATIVE); EPITHELIAL CELLS, URINE SQUAMOUS 1+ /lpf (0-1+); FENTANYL, URINE NEGATIVE (NEGATIVE); METHADONE, URINE NEGATIVE (NEGATIVE); OPIATES, URINE NEGATIVE (NEGATIVE); OXYCODONE, URINE NEGATIVE (NEGATIVE); PHENCYCLIDINE, URINE NEGATIVE (NEGATIVE); RED BLOOD CELLS, URINE 0-1 /hpf (0-5)
[2023-12-07 03:29] LABS: CASTS, URINE HYALINE 1+ \\lpf; COLLECTION TYPE, URINE CLEAN CATCH; REFLEX CULTURE, URINE No (No)
[2023-12-07 04:56] VITALS: BP 148/82
== END 2023-12-07 04:59 | disposition home or self-care (01) ==
LOC: ED 02:08
PROVIDERS: Internal Medicine
DX: T69.9XXA Effect of reduced temperature, unspecified, initial encounter (principal); F31.9 Bipolar disorder, unspecified; E87.6 Hypokalemia; F15.129 Other stimulant abuse with intoxication, unspecified; Z87.891 Personal history of nicotine dependence; Z88.5 Allergy status to narcotic agent; Z88.8 Allergy status to other drugs, medicaments and biological substances; Z79.899 Other long term (current) drug therapy
CPT/HCPCS: 36415; 51701; 71045; 80053; 80307; 81001; 85025; 99285-25; A9270; G0480; J7030